=== PATIENT | female | born 1965 | race American Indian/Alaskan Native ===

== ENCOUNTER 2022-01-22 09:34 | Inpatient (IN) | payer SELFPAY ==
--- NOTE | 2022-01-22 09:59 | Emergency Department Report ---
ED CPR HPI - General Stated Complaint: CARDIAC ARREST Time Seen by Provider: 01/22/22 09:42 Source: EMS, old records reviewed Limitations: Altered Mental Status - History of Present Illness Initial Comments: Chief complaint: Cardiac arrest HPI: This is a 56-year-old female with history of hypertension who was last seen well at 5 AM. She was found unresponsive by family member. Upon arrival EMS discovered her without a pulse. Asystole initially rhythm. She was treated with 3 doses of epinephrine and 1 dose of sodium bicarbonate. She was also treated with naloxone. Complaint: found unresponsive Place: home Initial Findings in the Field: unresponsive ROSC in the Field: No Associated Injuries: No Treatments Prior to Arrival: BMV, epinephrine mgs # (3 doses of epinephrine), sodium bicarbonate (1 dose of sodium bicarbonate), other (1 dose naloxone) - Related Data Home Medications Medication Instructions Recorded Confirmed Last Taken Famotidine [Pepcid] 20 mg PO BID 01/22/22 01/22/22 Unknown Losartan [Cozaar] 25 mg PO QDAY 01/22/22 01/22/22 Unknown Pravastatin [Pravachol] 40 mg PO QHS 01/22/22 01/22/22 Unknown donepeziL [Aricept] 5 mg PO QDAY 01/22/22 01/22/22 Unknown Allergies Allergy/AdvReac Type Severity Reaction Status Date / Time No Known Allergies Allergy Verified 01/22/22 11:32 ED Review of Systems ROS: Stated complaint: CARDIAC ARREST Other details as noted in HPI Comment: Unobtainable due to pts medical conditions (Unresponsive patient) ED Past Medical Hx - Past Medical History Previous Medical History?: Yes Hx Hypertension: Yes - Surgical History Additional Surgical History: Unable to obtain - Family History Family history: other (Unable to obtain) - Social History Smoking Status: Unknown if ever smoked Substance Use Type: Other (Unable to obtain) - Medications Home Medications: Home Medications Medication Instructions Recorded Confirmed Last Taken Type Famotidine [Pepcid] 20 mg PO BID 01/22/22 01/22/22 Unknown History Losartan [Cozaar] 25 mg PO QDAY 01/22/22 01/22/22 Unknown History Pravastatin [Pravachol] 40 mg PO QHS 01/22/22 01/22/22 Unknown History donepeziL [Aricept] 5 mg PO QDAY 01/22/22 01/22/22 Unknown History ED Physical Exam - General General appearance: other (GCS 3, no movement, lifeless) - Head Head exam: Present: atraumatic, normocephalic - Eye Eye exam: Present: other (Fixed dilated pupils) - ENT ENT exam: Present: other (No oropharyngeal lesions, oral airway in place) - Neck Neck exam: Present: normal inspection - Respiratory Respiratory exam: Present: other (Equal breath sounds with bag mask valve ventilation no spontaneous respirations). Absent: wheezes, rales, rhonchi - Cardiovascular Cardiovascular Exam: Present: other (No auscultated heart sounds, no palpable pulse) - GI/Abdominal GI/Abdominal exam: Present: distended - Extremities Exam Extremities exam: Present: normal inspection - Neurological Exam Neurological exam: Present: other (GCS 3 lifeless) - Psychiatric Psychiatric exam: Present: other (GCS 3 life) - Skin Skin exam: Present: pallor ED Course Vital Signs 01/22/22 01/22/22 01/22/22 09:40 09:46 09:50 Temperature Pulse Rate 145 H 76 Respiratory 15 18 Rate Blood Pressure 107/65 111/45 O2 Sat by Pulse 68 L 72 L 61 L Oximetry 01/22/22 01/22/22 01/22/22 09:56 10:00 10:06 Temperature Pulse Rate 194 H 140 H 116 H Respiratory 26 H 18 22 Rate Blood Pressure 100/76 209/106 121/71 O2 Sat by Pulse 63 L 99 85 Oximetry 01/22/22 01/22/22 01/22/22 10:12 10:15 10:20 Temperature 96.9 F L Pulse Rate 113 H 163 H 162 H Respiratory 18 17 18 Rate Blood Pressure 116/72 O2 Sat by Pulse 87 99 100 Oximetry 01/22/22 01/22/22 01/22/22 10:25 10:30 10:35 Temperature Pulse Rate 178 H 170 H 134 H Respiratory 18 18 18 Rate Blood Pressure 134/75 125/66 121/86 O2 Sat by Pulse 99 96 92 Oximetry 01/22/22 01/22/22 01/22/22 10:40 10:45 10:50 Temperature Pulse Rate 139 H 141 H 142 H Respiratory 17 18 18 Rate Blood Pressure 131/77 126/76 128/79 O2 Sat by Pulse 94 96 Oximetry 01/22/22 01/22/22 01/22/22 10:55 11:00 11:05 Temperature Pulse Rate 142 H 142 H 143 H Respiratory 18 16 18 Rate Blood Pressure 123/77 115/75 127/79 O2 Sat by Pulse 98 96 95 Oximetry 01/22/22 01/22/22 01/22/22 11:10 11:15 11:20 Temperature Pulse Rate 143 H 143 H 144 H Respiratory 18 18 18 Rate Blood Pressure 128/87 127/85 131/87 O2 Sat by Pulse 95 96 Oximetry 01/22/22 01/22/22 01/22/22 11:25 11:30 11:35 Temperature Pulse Rate 144 H 144 H 144 H Respiratory 18 18 18 Rate Blood Pressure 128/90 129/92 137/93 O2 Sat by Pulse 96 96 99 Oximetry 01/22/22 11:40 Temperature Pulse Rate 145 H Respiratory 18 Rate Blood Pressure 136/90 O2 Sat by Pulse Oximetry - Central Line Placement Right IJ Consent Obtained: emergent situation Time Out Performed: Yes Patient Placed on Monitor/Pulse Ox: Yes MD Prep: mask, gown, gloves, other (Drape cap) Central Line Prep: sterile drapes applied Ultrasound Used for Placement: Yes Central Line Lumen Inserted: triple Reason for Insertion: CV Pressure Monitoring Central Line Position: good blood return Dressing Applied: Tegaderm Post Procedure X-Ray: tip of catheter in good p Patient Tolerated Procedure: well - Intubation Time Out Performed: Yes Laryngoscope: Hansa Size: 4 Assist Device Used: other (video laryngoscope) ET Tube Size: 8 Tube Secured Depth (cm): 20 Tube Secured Location: teeth Tube Placement Confirmation: visualized tube passing t Patient Tolerated Procedure: well Intubation Complications: none ED Medical Decision Making - Lab Data Result diagrams: 01/22/22 09:53 01/22/22 09:53 - Radiology Data Radiology results: report reviewed Patient Name: BLAYNE COY Gender: Female Date of : 1965 Home Phone: Referring Provider: MARIA G FARRELL Organization: [facility] Accession Number: [id number] Requested Date: January 22, 2022 09:43 Report Status: Final Requested Procedure: 1 Procedure Description: XR chest 1V ap Modality: XR Findings Reporting MD: Cal Aguilar Dictation Time: January 22, 2022 09:03 Sawdust Machine Operator: Not available Rock Mason Apprentice Date: CHEST 1 VIEW 01/22/2022 9:02 AM INDICATION / CLINICAL INFORMATION: ETT respiratory failure. COMPARISON: None available. FINDINGS: SUPPORT DEVICES: ET tube tip is about 2.4 cm above the juna. HEART / MEDIASTINUM: Mild cardiomegaly. LUNGS / PLEURA: Mild patchy bilateral opacities. No pneumothorax. ADDITIONAL FINDINGS: No significant additional findings. IMPRESSION: 1. ET tube tip about 2.4 cm above the juan. 2. Mild cardiomegaly with patchy bilateral opacities. Signer Name: Cal Aguilar MD Signed: 01/22/2022 9:03 AM Workstation Name: [id number] Patient Name: BLAYNE COY Gender: Female Date of : 1965 Home Phone: Referring Provider: MARIA G FARRELL Organization: [facility] Accession Number: [id number] Requested Date: January 22, 2022 10:51 Report Status: Final Requested Procedure: 1 Procedure Description: XR chest 1V ap Modality: XR Findings Reporting MD: Willy Frank Dictation Time: January 22, 2022 10:13 Sawdust Machine Operator: Not available Rock Mason Apprentice Date: XR chest 1V ap INDICATION / CLINICAL INFORMATION: CVL right IJ insertion. COMPARISON: Radiograph from earlier same day. FINDINGS: SUPPORT DEVICES: Right IJ central venous catheter projects over the lower SVC. Endotracheal tube is stable. HEART /PULMONARY VASCULATURE: Unchanged. LUNGS / PLEURA: There is improved lung aeration. Left upper lung opacity is improved. Streaky opacities remain throughout both lungs, left greater than right. No sizable pleural effusion. No pneumothorax. IMPRESSION: 1. Right IJ central venous catheter terminates over the lower SVC. 2. Improved lung aeration. Signer Name: Willy Frank MD Signed: 01/22/2022 10:13 AM Workstation Name: [id number] - Medical Decision Making Is a 56-year-old female with history of hypertension who presents in cardiac arrest. After continue resuscitation in the emergency department which included chest compressions epinephrine calcium sodium bicarbonate, ROSC achieved. Shock was also given. Patient was intubated without medication. During ED course, cardiac arrest again ensued. Patient received additional doses of epinephrine calcium and sodium bicarbonate. Patient now requires vasopressor therapy for hypotension. Dopamine infusion used to bridge while CVL was being inserted. Patient has right IJ CVL. Levophed will be ordered. Patient is admitted to CCU in critical condition. Patient currently GCS 3. Admitted to the hospital service. I have consulted network consultant. Work-up reveals acute kidney injury, elevated BNP, hypercalcemia, elevated D- dimer. Critical Care Time: Yes Critical care time in (mins) excluding proc time.: 80 Critical care attestation.: If time is entered above; I have spent that time in minutes in the direct care of this critically ill patient, excluding procedure time. 80 minutes of critical care time excluding procedures were used in the care of the patient. I came immediately to the bedside upon patient's arrival. I obtained history from EMS at the bedside. I discussed treatment plan with the nursing team members. I reviewed electronic record. Patient required multiple interventions and reassessments. ED Disposition Clinical Impression: Acute encephalopathy, [place] (acute kidney injury), Cardiogenic shock, Cardiac arrest Disposition: ADMITTED INPATIENT Is pt being admited?: Yes Does the pt Need Aspirin: No Condition: Critical
--- NOTE | 2022-01-22 10:08 | XRay Report ---
CHEST 1 VIEW 01/22/2022 9:02 AM INDICATION / CLINICAL INFORMATION: ETT respiratory failure. COMPARISON: None available. FINDINGS: SUPPORT DEVICES: ET tube tip is about 2.4 cm above the juan. HEART / MEDIASTINUM: Mild cardiomegaly. LUNGS / PLEURA: Mild patchy bilateral opacities. No pneumothorax. ADDITIONAL FINDINGS: No significant additional findings. IMPRESSION: 1. ET tube tip about 2.4 cm above the juan. 2. Mild cardiomegaly with patchy bilateral opacities. Signer Name: Cal Aguilar MD Signed: 01/22/2022 10:03 AM Workstation Name: [id number]
[2022-01-22 10:12] LABS: Basophils % (Auto) 0.6 % (0.0-1.8); Eosinophils # (Auto) 0.1 K/mm3 (0.0-0.4); Eosinophils % (Auto) 1.5 % (0.0-4.3); Hematocrit 35.2 % (30.3-42.9); Lymphocytes # (Auto) 3.9 K/mm3 (1.2-5.4); Lymphocytes % (Auto) 50.5 % (13.4-35.0); Mean Corpuscular HGB Conc 31 % (30-34); Mean Corpuscular Volume 101 fl (79-97); Monocytes # (Auto) 0.4 K/mm3 (0.0-0.8); Monocytes % (Auto) 4.6 % (0.0-7.3)
[2022-01-22 10:15] LABS: Platelet Count 80 K/mm3 (140-440)
[2022-01-22 10:23] LABS: Alanine Aminotransferase 26 units/L (7-56); BUN/Creatinine Ratio 13; Blood Urea Nitrogen 45 mg/dL (7-17); Hemolysis Index 13
[2022-01-22 10:26] LABS: Calcium > 13.0 mg/dL (8.4-10.2)
[2022-01-22 10:34] LABS: Chol/HDL Ratio 3.49 %; HDL Cholesterol 57 mg/dL (40-59); LDL Cholesterol,Direct 127 mg/dL (50-130)
[2022-01-22 10:38] LABS: INR TNR (0.87-1.13); Partial Thromboplastin Time TNR Sec. (24.2-36.6)
[2022-01-22 11:17] LABS: INR 1.03 (0.87-1.13); Partial Thromboplastin Time 24.7 Sec. (24.2-36.6)
--- NOTE | 2022-01-22 11:17 | XRay Report ---
XR chest 1V ap INDICATION / CLINICAL INFORMATION: CVL right IJ insertion. COMPARISON: Radiograph from earlier same day. FINDINGS: SUPPORT DEVICES: Right IJ central venous catheter projects over the lower SVC. Endotracheal tube is s table. HEART /PULMONARY VASCULATURE: Unchanged. LUNGS / PLEURA: There is improved lung aeration. Left upper lung opacity is improved. Streaky opaciti es remain throughout both lungs, left greater than right. No sizable pleural effusion. No pneumothora x. IMPRESSION: 1. Right IJ central venous catheter terminates over the lower SVC. 2. Improved lung aeration. Signer Name: Willy Frank MD Signed: 01/22/2022 11:13 AM Workstation Name: [id number]
[2022-01-22 11:44] LABS: ABG Base Excess 0.9 mmol/L (-2.0-3.0); ABG Methemoglobin 0.5 % (0.0-1.5); ABG Oxygen Saturation 99.5 % (95.0-99.0); ABG PCO2 38.1 mm Hg; ABG PH 7.435 pH Units (7.350-7.450)
[2022-01-22] MEDS ORDERED: DOPamine 800 MG/D5W 250ML 800 MG/250 ML BAG IV ONE (11:45)
[2022-01-22 11:46] LABS: ABG PO2 274.8 mm Hg (80.0-90.0)
[2022-01-22] MEDS ORDERED: LIP THERAPY VASELINE TP PRN (12:00)
[2022-01-22] MEDS ORDERED: NORepinephrine/NS 8 MG-250 ML 8 MG/250 ML INFUS..BTL IV SCH (12:00)
[2022-01-22] MEDS: SENNOSIDES/DOCUSATE SODIUM 8.6/50 MG TAB FEEDTUBE SCH ×2 (12:05→21:13)
[2022-01-22] MEDS: FAMOTIDINE 20 MG/2 ML INJ IV SCH ×2 (12:05→21:13)
--- NOTE | 2022-01-22 12:23 | History and Physical Report ---
History of Present Illness Date of examination: 01/22/22 Date of admission: January 22, 2022 Chief complaint: S/p cardiac arrest around 5:30 AM History of present illness: 56-year-old female with history of hypertension, GERD and hyperlipidemia was last well-known at 5 AM. She was found unresponsive by family member. EMS was called. CPR was not done initially. CPR was resumed and ACLS protocol was followed. Patient was given 3 doses of epinephrine and 1 dose of bicarb and naloxone. Return of spontaneous circulation was achieved. Patient was intubated for protection of airway. In the emergency room patient was hypotensive. Patient was initiated on Levophed. No fever or chills or any signs or symptoms of infection before. Patient was in normal health. Was doing well. ED course--patient intubated and started on pressors. Patient being admitted to ICU. Labs revealed hypercalcemia and acute kidney injury and elevated troponin. - Past Medical History Previous Medical History?: Yes --Hypertension: Yes - Surgical History Additional Surgical History: Unable to obtain - Family History Family history: other (Unable to obtain) - Social History Smoking Status: Unknown if ever smoked Substance Use Type: Other (Unable to obtain) - Medications Home Medications: Home Medications Medication Instructions Recorded Confirmed Last Taken Type Famotidine [Pepcid] 20 mg PO BID 01/22/22 01/22/22 Unknown History Losartan [Cozaar] 25 mg PO QDAY 01/22/22 01/22/22 Unknown History Pravastatin [Pravachol] 40 mg PO QHS 01/22/22 01/22/22 Unknown History donepeziL [Aricept] 5 mg PO QDAY 01/22/22 01/22/22 Unknown History Review of Systems ROS: Stated complaint: CARDIAC ARREST Other details as noted in HPI Comment: Unobtainable due to pts medical conditions (Unresponsive patient) Medications and Allergies Allergies Allergy/AdvReac Type Severity Reaction Status Date / Time No Known Allergies Allergy Verified 01/22/22 11:32 Home Medications Medication Instructions Recorded Confirmed Last Taken Type Famotidine [Pepcid] 20 mg PO BID 01/22/22 01/22/22 Unknown History Losartan [Cozaar] 25 mg PO QDAY 01/22/22 01/22/22 Unknown History Pravastatin [Pravachol] 40 mg PO QHS 01/22/22 01/22/22 Unknown History donepeziL [Aricept] 5 mg PO QDAY 01/22/22 01/22/22 Unknown History Active Meds: Active Medications Famotidine (Famotidine 20 Mg/2 Ml Inj) 10 mg IV BID ALEX Last Admin: 01/22/22 12:05 Dose: 10 mg Hydrophilic Ointment (Lip Therapy Vaseline) 1 applic TP Q2HR PRN PRN Reason: Dry Lips Last Admin: 01/22/22 12:05 Dose: 1 applic Dopamine HCl/Dextrose (Dopamine 800 Mg/D5w 250ml) 800 mg in 250 mls @ 3.21 mls/hr IV TITR ONE; Protocol Stop: 01/25/22 17:37 Last Titration: 01/22/22 12:15 Dose: 12 mcg/kg/min, 19.26 mls/hr NORepinephrine/NS 8 MG-250 ML (Norepinephrine/Ns 8 Mg-250 Ml (Double Conc)) 8 mg in 250 mls @ 3.75 mls/hr IV TITRATE ALEX; Protocol Multi-Ingred Cream/Lotion/Oil/Oint (Mineral Oil/Petrolatum, White Ophth Oint 3.5 Gm) 1 applic OU Q4HR PRN PRN Reason: Dry Eye(s) Senna/Docusate Sodium (Sennosides/Docusate Sodium 8.6/50 Mg Tab) 1 tab FEEDTUBE BID ALEX Last Admin: 01/22/22 12:05 Dose: 1 tab Exam - Constitutional Vitals: Temp Pulse Resp BP Pulse Ox 96.9 F L 145 H 18 136/90 99 01/22/22 10:20 01/22/22 11:40 01/22/22 11:40 01/22/22 11:40 01/22/22 11:35 General appearance: Present: severe distress, well-nourished - EENT Eyes: Present: PERRL ENT: hearing intact, clear oral mucosa - Neck Neck: Present: supple, normal ROM - Respiratory Respiratory effort: normal Respiratory: bilateral: CTA - Cardiovascular Heart rate: 98 Rhythm: regular Heart Sounds: Present: S1 & S2. Absent: rub, click - Extremities Extremities: pulses symmetrical, No edema Peripheral Pulses: within normal limits - Abdominal General gastrointestinal: Present: soft, non-tender, non-distended, normal bowel sounds Female genitourinary: Present: normal - Integumentary Integumentary: Present: clear, warm, dry - Musculoskeletal Musculoskeletal: strength equal bilaterally, generalized weakness - Psychiatric Psychiatric: other (Unresponsive) - Neurologic Neurologic: CNII-XII intact, moves all extremities - Allied Health Allied health notes reviewed: nursing, case management HEART Score - HEART Score History: Moderately suspicious Age: 45-65 Risk factors: 1-2 risk factors Troponin: Troponin T 0.038 ng/mL (0.00-0.029) H 01/22/22 09:53 Troponin: 1-3x normal limit - Critical Actions Critical Actions: 4-6 pts:12-16.6% risk of adverse cardiac event. Should be admitted Results - Labs CBC & Chem 7: 01/23/22 03:57 01/23/22 03:57 Labs: Laboratory Last Values WBC 7.7 K/mm3 (4.5-11.0) 01/22/22 09:53 RBC 3.50 M/mm3 (3.65-5.03) L 01/22/22 09:53 Hgb 11.0 gm/dl (10.1-14.3) 01/22/22 09:53 Hct 35.2 % (30.3-42.9) 01/22/22 09:53 MCV 101 fl (79-97) H 01/22/22 09:53 MCH 31 pg (28-32) 01/22/22 09:53 MCHC 31 % (30-34) 01/22/22 09:53 RDW 14.0 % (13.2-15.2) 01/22/22 09:53 Plt Count 80 K/mm3 (140-440) L 01/22/22 09:53 Lymph % (Auto) 50.5 % (13.4-35.0) H 01/22/22 09:53 [place] % (Auto) 4.6 % (0.0-7.3) 01/22/22 09:53 Eos % (Auto) 1.5 % (0.0-4.3) 01/22/22 09:53 Baso % (Auto) 0.6 % (0.0-1.8) 01/22/22 09:53 Lymph # (Auto) 3.9 K/mm3 (1.2-5.4) 01/22/22 09:53 [place] # (Auto) 0.4 K/mm3 (0.0-0.8) 01/22/22 09:53 Eos # (Auto) 0.1 K/mm3 (0.0-0.4) 01/22/22 09:53 Baso # (Auto) 0.0 K/mm3 (0.0-0.1) 01/22/22 09:53 Seg Neutrophils % 42.8 % (40.0-70.0) 01/22/22 09:53 Seg Neutrophils # 3.3 K/mm3 (1.8-7.7) 01/22/22 09:53 PT 14.6 Sec. (12.2-14.9) 01/22/22 10:47 INR 1.03 (0.87-1.13) 01/22/22 10:47 APTT 24.7 Sec. (24.2-36.6) 01/22/22 10:47 D-Dimer 5382.96 ng/mlDDU (0-234) H 01/22/22 10:47 ABG pH 7.435 pH Units (7.350-7.450) 01/22/22 11:10 ABG pCO2 38.1 mm Hg 01/22/22 11:10 ABG pO2 274.8 mm Hg (80.0-90.0) H 01/22/22 11:10 ABG HCO3 25.0 mmol/L (20.0-26.0) 01/22/22 11:10 ABG O2 Saturation 99.5 % (95.0-99.0) H 01/22/22 11:10 ABG O2 Content 18.8 (0.0-44) 01/22/22 11:10 ABG Base Excess 0.9 mmol/L (-2.0-3.0) 01/22/22 11:10 ABG Hemoglobin 13.1 gm/dl (12.0-16.0) 01/22/22 11:10 ABG Carboxyhemoglobin 0.7 % (0.0-5.0) 01/22/22 11:10 ABG Methemoglobin 0.5 % (0.0-1.5) 01/22/22 11:10 Oxyhemoglobin 98.3 % (95.0-99.0) 01/22/22 11:10 FiO2 100 % 01/22/22 11:10 Sodium 149 mmol/L (137-145) H 01/22/22 09:53 Potassium 3.6 mmol/L (3.6-5.0) 01/22/22 09:53 Chloride 107.3 mmol/L (98-107) H 01/22/22 09:53 Carbon Dioxide 23 mmol/L (22-30) 01/22/22 09:53 Anion Gap 22 mmol/L 01/22/22 09:53 BUN 45 mg/dL (7-17) H 01/22/22 09:53 Creatinine 3.5 mg/dL (0.6-1.2) H 01/22/22 09:53 Estimated GFR 14 ml/min 01/22/22 09:53 BUN/Creatinine Ratio 13 % 01/22/22 09:53 Glucose 271 mg/dL (65-100) H 01/22/22 09:53 Calcium > 13.0 mg/dL (8.4-10.2) H* 01/22/22 09:53 Total Bilirubin < 0.20 mg/dL (0.1-1.2) 01/22/22 09:53 AST 44 units/L (5-40) H 01/22/22 09:53 ALT 26 units/L (7-56) 01/22/22 09:53 Alkaline Phosphatase 66 units/L (35-129) 01/22/22 09:53 Troponin T 0.038 ng/mL (0.00-0.029) H 01/22/22 09:53 NT-Pro-B Natriuret Pep 996.2 pg/mL (0-900) H 01/22/22 09:53 Total Protein 5.8 g/dL (6.3-8.2) L 01/22/22 09:53 Albumin 3.0 g/dL (3.9-5) L 01/22/22 09:53 Albumin/Globulin Ratio 1.1 % 01/22/22 09:53 Triglycerides 69 mg/dL (2-149) 01/22/22 09:53 Cholesterol 199 mg/dL (50-199) 01/22/22 09:53 LDL Cholesterol Direct 127 mg/dL (50-130) 01/22/22 09:53 HDL Cholesterol 57 mg/dL (40-59) 01/22/22 09:53 Cholesterol/HDL Ratio 3.49 % 01/22/22 09:53 Lipase 74 units/L (13-60) H 01/22/22 09:53 Short CBC 01/22/22 01/23/22 Range/Units 09:53 03:57 WBC 7.7 8.0 (4.5-11.0) K/mm3 Hgb 11.0 11.0 (10.1-14.3) gm/dl Hct 35.2 33.2 (30.3-42.9) % Plt Count 80 L 175 D (140-440) K/mm3 BMP 01/22/22 01/23/22 09:53 03:57 Sodium 149 H 147 H Potassium 3.6 3.9 Chloride 107.3 H 111.2 H Carbon Dioxide 23 23 BUN 45 H 56 H Creatinine 3.5 H 4.7 H Glucose 271 H 94 Calcium > 13.0 H* 9.5 D Cardiac Enzymes 01/22/22 Range/Units 09:53 Troponin T 0.038 H (0.00-0.029) ng/mL Liver Function 01/22/22 01/23/22 Range/Units 09:53 03:57 Total Bilirubin < 0.20 0.30 (0.1-1.2) mg/dL AST 44 H 86 H (5-40) units/L ALT 26 35 (7-56) units/L Alkaline Phosphatase 66 56 (35-129) units/L Albumin 3.0 L 2.7 L (3.9-5) g/dL Urine 01/22/22 Range/Units 17:30 Urine Color Colorless (Yellow) Urine pH 8.0 H (5.0-7.0) Ur Specific [place] 1.005 (1.003-1.030) Urine Protein 100 mg/dl (Negative) mg/dL Urine Glucose (UA) Trace (Negative) mg/dL - Imaging and Cardiology EKG: report reviewed (Sinus tachycardia no acute ST-T wave changes) Chest x-ray: report reviewed Imaging and Cardiology: Chest x-ray Mild cardiomegaly bilateral patchy opacities Assessment and Plan Assessment and plan: Critical care statement The high probability OF a clinically significant sudden or life-threatening deterioration of the cardiorespiratory system and endocrine system required my full and direct attention, intervention and postoperative management. The aggregate critical care time was 40 minutes. The time is in addition to time spent performing reported procedures but includes the followin: Data review and interpretation 2: Patient assessment and monitoring of vital signs 3: Documentation 4:: Medication orders and management Advance Directives: Yes (Full code) VTE prophylaxis?: Chemical Plan of care discussed with patient/family: Yes - Patient Problems (1) Sudden cardiac arrest Current Visit: Yes Status: Acute Plan to address problem: Patient was on cardiac arrest around 5:30 AM Was resuscitated by EMS and return of spontaneous circulation was achieved 3 doses of epinephrine and once dose of bicarb was given Patient was reintubated in the emergency room and also central line was placed Patient on Levophed and pressors IV fluids. Elevated D-dimer and elevated troponin CT angiogram could not be done because of logistics (2) [place] (acute kidney injury) Current Visit: Yes Status: Acute Plan to address problem: Possible ATN secondary to hypotension IV fluids for now Nephrology consult requested (3) NSTEMI (non-ST elevated myocardial infarction) Current Visit: Yes Status: Acute Plan to address problem: Possible NSTEMI Patient initiated on Lovenox Cardiology consult requested Patient is on pressors now Poor prognosis (4) Elevated d-dimer Current Visit: Yes Status: Acute Plan to address problem: CT angiogram could not be done PE cannot be ruled out Patient on high dose Lovenox 85 mg every 12 (5) Sepsis Current Visit: Yes Status: Acute Qualifiers: Sepsis type: sepsis due to unspecified organism Plan to address problem: Unlikely but patient started on cefepime and vancomycin empirically May be discontinued in 24 to 48 hours (6) Hypercalcemia Current Visit: Yes Status: Acute Plan to address problem: IV fluids for now and recheck calcium level (7) Hypertension Current Visit: Yes Status: Chronic Qualifiers: Hypertension type: primary hypertension Qualified Code(s): I10 - Essential (primary) hypertension Plan to address problem: Hold antihypertensives for now (8) DVT prophylaxis Current Visit: Yes Status: Acute Plan to address problem: Patient on anticoagulation and GI prophylaxis (9) Advance care planning Current Visit: Yes Status: Acute Plan to address problem: Patient is full code, discussed with family at length. Advance education conducted, care plan discussed, diagnosis discussed, prognosis discussed. Patient is full code. Patient's family acknowledges understanding and agreement with care plan. +30 minutes.
[2022-01-22] MEDS: HEPARIN 5,000 UNIT/1 ML VIAL SUB-Q SCH ×2 (12:47→21:15)
[2022-01-22] MEDS: SODIUM CHLORIDE 0.9% 1000 ML 1,000 ML IV SCH (12:47)
[2022-01-22] MEDS ORDERED: ACETAMINOPHEN 325 MG TAB PO PRN (13:00)
[2022-01-22] MEDS ORDERED: VANCOMYCIN PHARMACY TO DOSE IV SCH (13:00)
[2022-01-22] MEDS ORDERED: METOCLOPRAMIDE 10 MG/2 ML INJ IV PRN (13:00)
[2022-01-22] MEDS ORDERED: ONDANSETRON 4 MG/2 ML INJ IV PRN (13:00)
[2022-01-22] MEDS ORDERED: MORPHINE 2 MG/1 ML INJ IV PRN (13:00)
[2022-01-22] MEDS ORDERED: MINERAL OIL/PETROLATUM, WHITE OPHTH OINT 3.5 GM OU PRN (14:00)
[2022-01-22] MEDS ORDERED: VANCOMYCIN 1,500 MG in SODIUM CHLORIDE 0.9% 500 ML 500 ML IV SCH (14:15)
[2022-01-22] MEDS ORDERED: CEFEPIME/NS 2 GM/100 ML 2 GM/100 ML BAG IV SCH (15:29)
[2022-01-22] MEDS: CEFEPIME/NS 1 GM/100 ML 1 GM/100 ML BAG IV SCH (16:00)
[2022-01-22 17:59] LABS: Bacteria,Urine 1+ /HPF (Negative)
[2022-01-22 18:03] LABS: Amphetamine Screen,Urine Negative; Benzodiazepines Screen,Urine Negative; Cannabinoid Screen,Urine Negative; Cocaine Screen,Urine Negative; Methadone Screen,Urine Negative; Opiate Screen,Urine Negative
[2022-01-22 18:19] LABS: Bilirubin,Urine Negative (Negative); Blood,Urine Trace (Negative); Color,Urine Colorless (Yellow)
[2022-01-22 18:20] LABS: Urobilinogen,Urine < 2.0 mg/dL (<2.0)
[2022-01-23] MEDS ORDERED: hydrALAZINE 20 MG/1 ML INJ IV PRN (02:00)
--- NOTE | 2022-01-23 04:14 | XRay Report ---
CHEST 1 VIEW INDICATION / CLINICAL INFORMATION: follow up respiratory failure. COMPARISON: Chest x-ray 01/22/2022 FINDINGS: SUPPORT DEVICES: Stable, satisfactory device positioning. Defibrillator pad overlies the right chest. HEART / MEDIASTINUM: No significant interval change. LUNGS / PLEURA: No significant interval change. No pneumothorax. ADDITIONAL FINDINGS: No significant additional findings. IMPRESSION: 1. No active cardiopulmonary disease. Satisfactory positioning of tubes and lines. Signer Name: Elie Salas II, MD Signed: 01/23/2022 4:10 AM Workstation Name: [id number]
[2022-01-23] MEDS: CEFEPIME/NS 1 GM/100 ML 1 GM/100 ML BAG IV SCH (04:16)
[2022-01-23] MEDS: SODIUM CHLORIDE 0.9% 1000 ML 1,000 ML IV SCH ×3 (04:18→22:00)
[2022-01-23 04:19] LABS: ABG Base Excess 1.7 mmol/L (-2.0-3.0); ABG HCO3 22.9 mmol/L (20.0-26.0); ABG Methemoglobin 0.4 % (0.0-1.5); ABG Oxygen Saturation 98.7 % (95.0-99.0); ABG PCO2 25.2 mm Hg; ABG PH 7.575 pH Units (7.350-7.450); ABG PO2 124.7 mm Hg (80.0-90.0)
[2022-01-23 04:24] LABS: Basophils % (Auto) 0.2 % (0.0-1.8); Eosinophils % (Auto) 0.5 % (0.0-4.3); Hematocrit 33.2 % (30.3-42.9); Lymphocytes # (Auto) 0.9 K/mm3 (1.2-5.4); Lymphocytes % (Auto) 11.4 % (13.4-35.0); Mean Corpuscular HGB Conc 33 % (30-34); Mean Corpuscular Volume 96 fl (79-97); Monocytes # (Auto) 0.4 K/mm3 (0.0-0.8); Platelet Count 175 K/mm3 (140-440); Red Blood Count 3.46 M/mm3 (3.65-5.03); Red Cell Distribution Width 13.6 % (13.2-15.2)
[2022-01-23 04:45] LABS: Albumin 2.7 g/dL (3.9-5); Calcium 9.5 mg/dL (8.4-10.2)
[2022-01-23] MEDS ORDERED: SODIUM CHLORIDE 0.9% 250ML 250 ML IV SCH (06:00)
--- NOTE | 2022-01-23 09:21 | Electrocardiograph Report ---
[facility] Test Date: 2022-01-22 Test Time: 10:38:21 Pat Name: BLAYNE COY Department: Room: A260 1 Gender: F Logging Contractor: RACH : 1965 Requested By: DANIA VENTURA Order Number: [id number] Reading MD: Jeanmarie Bolaños Measurements Intervals [place] Rate: 139 P: 55 WY: 168 QRS: -54 QRSD: 137 T: 86 QT: 322 QTc: 490 Interpretive Statements Sinus tachycardia RBBB and LAFB Repol abnrm suggests ischemia, diffuse leads No previous ECG available for comparison Electronically Signed On 01-23-2022 9:21:02 EST by Jeanmarie Bolaños
[2022-01-23] MEDS: FAMOTIDINE 20 MG/2 ML INJ IV SCH ×2 (09:30→22:19)
[2022-01-23] MEDS: SENNOSIDES/DOCUSATE SODIUM 8.6/50 MG TAB FEEDTUBE SCH ×2 (09:30→22:19)
--- NOTE | 2022-01-23 09:58 | Consultation ---
History of Present Illness Consult date: 01/23/22 Reason for Consult: Post cardiac arrest History of present illness: S/p cardiac arrest around 5:30 AM History of present illness: 56-year-old female with history of hypertension, GERD and hyperlipidemia was last well-known at 5 AM. She was found unresponsive by family member. EMS was called. CPR was not done initially. CPR was resumed and ACLS protocol was followed. Patient was given 3 doses of epinephrine and 1 dose of bicarb and naloxone. Return of spontaneous circulation was achieved. Patient was intub ated for protection of airway. In the emergency room patient was hypotensive. Patient was initiated on Levophed. No fever or chills or any signs or symptoms of infection before. Patient was in normal health. Was doing well. ED course--patient intubated and started on pressors. Patient being admitted to ICU. Labs revealed hypercalcemia and acute kidney injury and elevated troponin. Neurology consulted for evaluation of unresponsiveness post cardiac arrest , down time is unknown - Past Medical History Previous Medical History?: Yes --Hypertension: Yes - Surgical History Additional Surgical History: Unable to obtain - Family History Family history: other (Unable to obtain) - Social History Smoking Status: Unknown if ever smoked Substance Use Type: Other (Unable to obtain) - Medications Home Medications: Home Medications Medication Instructions Recorded Confirmed Last Taken Type Famotidine [Pepcid] 20 mg PO BID 01/22/22 01/22/22 Unknown History Losartan [Cozaar] 25 mg PO QDAY 01/22/22 01/22/22 Unknown History Pravastatin [Pravachol] 40 mg PO QHS 01/22/22 01/22/22 Unknown History donepeziL [Aricept] 5 mg PO QDAY 01/22/22 01/22/22 Unknown History Review of Systems ROS: Stated complaint: CARDIAC ARREST Other details as noted in HPI Comment: Unobtainable due to pts medical conditions (Unresponsive patient) Medications and Allergies Allergies Allergy/AdvReac Type Severity Reaction Status Date / Time No Known Allergies Allergy Verified 01/22/22 11:32 Home Medications Medication Instructions Recorded Confirmed Last Taken Type Famotidine [Pepcid] 20 mg PO BID 01/22/22 01/22/22 Unknown History Losartan [Cozaar] 25 mg PO QDAY 01/22/22 01/22/22 Unknown History Pravastatin [Pravachol] 40 mg PO QHS 01/22/22 01/22/22 Unknown History donepeziL [Aricept] 5 mg PO QDAY 01/22/22 01/22/22 Unknown History Active Meds: Active Medications Famotidine (Famotidine 20 Mg/2 Ml Inj) 10 mg IV BID [facility] Last Admin: 01/22/22 12:05 Dose: 10 mg Hydrophilic Ointment (Lip Therapy Vaseline) 1 applic TP Q2HR PRN PRN Reason: Dry Lips Last Admin: 01/22/22 12:05 Dose: 1 applic Dopamine HCl/Dextrose (Dopamine 800 Mg/D5w 250ml) 800 mg in 250 mls @ 3.21 mls/hr IV TITR ONE; Protocol Stop: 01/25/22 17:37 Last Titration: 01/22/22 12:15 Dose: 12 mcg/kg/min, 19.26 mls/hr NORepinephrine/NS 8 MG-250 ML (Norepinephrine/Ns 8 Mg-250 Ml (Double Conc)) 8 mg in 250 mls @ 3.75 mls/hr IV TITRATE [facility]; Protocol Multi-Ingred Cream/Lotion/Oil/Oint (Mineral Oil/Petrolatum, White Ophth Oint 3.5 Gm) 1 applic OU Q4HR PRN PRN Reason: Dry Eye(s) Senna/Docusate Sodium (Sennosides/Docusate Sodium 8.6/50 Mg Tab) 1 tab FEEDTUBE BID [facility] Last Admin: 01/22/22 12:05 Dose: 1 tab Medications and Allergies Allergies Allergy/AdvReac Type Severity Reaction Status Date / Time No Known Allergies Allergy Verified 01/22/22 11:32 Home Medications Medication Instructions Recorded Confirmed Last Taken Type Famotidine [Pepcid] 20 mg PO BID 01/22/22 01/22/22 Unknown History Losartan [Cozaar] 25 mg PO QDAY 01/22/22 01/22/22 Unknown History Pravastatin [Pravachol] 40 mg PO QHS 01/22/22 01/22/22 Unknown History donepeziL [Aricept] 5 mg PO QDAY 01/22/22 01/22/22 Unknown History Active Meds: Active Medications Acetaminophen (Acetaminophen 325 Mg Tab) 650 mg PO Q4H PRN PRN Reason: Pain MILD(1-3)/Fever >100.5/PITTMAN Enoxaparin Sodium (Enoxaparin 80 Mg/0.8 Ml Inj) 80 mg SUB-Q Q24HR [facility]; Protocol Last Admin: 01/23/22 09:26 Dose: 80 mg Famotidine (Famotidine 20 Mg/2 Ml Inj) 10 mg IV BID [facility] Last Admin: 01/23/22 09:30 Dose: 10 mg Hydralazine HCl (Hydralazine 20 Mg/1 Ml Inj) 10 mg IV Q6HR PRN PRN Reason: systolic greather than 165 Last Admin: 01/23/22 01:47 Dose: 10 mg Hydrophilic Ointment (Lip Therapy Vaseline) 1 applic TP Q2HR PRN PRN Reason: Dry Lips Last Admin: 01/22/22 12:05 Dose: 1 applic Dopamine HCl/Dextrose (Dopamine 800 Mg/D5w 250ml) 800 mg in 250 mls @ 3.21 mls/hr IV TITR ONE; Protocol Stop: 01/25/22 17:37 Last Titration: 01/22/22 13:30 Dose: 4 mcg/kg/min, 6.42 mls/hr NORepinephrine/NS 8 MG-250 ML (Norepinephrine/Ns 8 Mg-250 Ml (Double Conc)) 8 mg in 250 mls @ 3.75 mls/hr IV TITRATE [facility]; Protocol Sodium Chloride (Nacl 0.9% 1000 Ml) 1,000 mls @ 125 mls/hr IV DIRECT [facility] Last Admin: 01/23/22 04:18 Dose: 125 mls/hr Sodium Chloride (Nacl 0.9% 250ml) 250 mls @ 999 mls/hr IV ONCE@0600 [facility] Stop: 01/23/22 10:00 Last Admin: 01/23/22 06:06 Dose: 999 mls/hr Cefepime HCl (Cefepime/Ns 1 Gm/100 Ml) 1 gm in 100 mls @ 200 mls/hr IV Q24H [facility] Metoclopramide HCl (Metoclopramide 10 Mg/2 Ml Inj) 5 mg IV Q6H PRN PRN Reason: Nausea And Vomiting Multi-Ingred Cream/Lotion/Oil/Oint (Mineral Oil/Petrolatum, White Ophth Oint 3.5 Gm) 1 applic OU Q4HR PRN PRN Reason: Dry Eye(s) Ondansetron HCl (Ondansetron 4 Mg/2 Ml Inj) 4 mg IV Q3H PRN PRN Reason: Nausea And Vomiting Senna/Docusate Sodium (Sennosides/Docusate Sodium 8.6/50 Mg Tab) 1 tab FEEDTUBE BID [facility] Last Admin: 01/23/22 09:30 Dose: 1 tab Sodium Chloride (Sodium Chloride 0.9% 10 Ml Flush Syringe) 10 ml IV BID [facility] Last Admin: 01/23/22 09:30 Dose: 10 ml Sodium Chloride (Sodium Chloride 0.9% 10 Ml Flush Syringe) 10 ml IV PRN PRN PRN Reason: LINE FLUSH Physical Examination - Vital Signs Vital Signs: Vital Signs Pulse Ox 68 L 01/22/22 09:40 - Constitutional General appearance: comfortable - EENT EENT: Present: PERRL, mucous membranes moist - Respiratory Respiratory: Present: lungs clear, rhonchi, other (intubated, not sedated) - Cardiovascular Cardiovascular: Present: regular rate, normal S1, normal S2 Extremities: Present: no peripheral edema bilatateraly, no clubbing, cyanosis - Gastrointestinal Gastrointestinal: Present: normoactive bowel sounds - Integumentary Integumentary: Present: normal - Neurologic Cranial nerve examination: other (pupils are 4mm none reactive , no gag , no corneal , no EOM is noted, no spontaneous breathing is noted) Detailed motor examination: other (no movment to stimuli is noted) Results - Laboratory Findings CBC and BMP: 01/23/22 03:57 01/23/22 03:57 Abnormal Lab Findings: Abnormal Labs 01/22/22 01/22/22 01/22/22 09:53 09:53 10:47 RBC 3.50 L MCV 101 H Plt Count 80 L Lymph % (Auto) 50.5 H Lymph # (Auto) Seg Neutrophils % D-Dimer 5382.96 H ABG pH ABG pO2 ABG O2 Saturation ABG Hemoglobin Sodium 149 H Chloride 107.3 H BUN 45 H Creatinine 3.5 H Glucose 271 H Calcium > 13.0 H* AST 44 H Troponin T 0.038 H NT-Pro-B Natriuret Pep 996.2 H Total Protein 5.8 L Albumin 3.0 L Lipase 74 H Urine pH Urine WBC (Auto) 01/22/22 01/22/22 01/23/22 11:10 17:30 03:57 RBC 3.46 L MCV Plt Count Lymph % (Auto) 11.4 L Lymph # (Auto) 0.9 L Seg Neutrophils % 82.9 H D-Dimer ABG pH ABG pO2 274.8 H ABG O2 Saturation 99.5 H ABG Hemoglobin Sodium Chloride BUN Creatinine Glucose Calcium AST Troponin T NT-Pro-B Natriuret Pep Total Protein Albumin Lipase Urine pH 8.0 H Urine WBC (Auto) 11.0 H 01/23/22 01/23/22 01/23/22 03:57 03:57 04:00 RBC MCV Plt Count Lymph % (Auto) Lymph # (Auto) Seg Neutrophils % D-Dimer ABG pH 7.575 H ABG pO2 124.7 H ABG O2 Saturation ABG Hemoglobin 10.2 L Sodium 147 H Chloride 111.2 H BUN 56 H Creatinine 4.7 H Glucose Calcium AST 86 H Troponin T 3.000 H* D NT-Pro-B Natriuret Pep Total Protein 5.7 L Albumin 2.7 L Lipase Urine pH Urine WBC (Auto) Assessment and Plan Assessment and Plan 56-year-old female with history of hypertension, GERD and hyperlipidemia was last well-known at 5 AM. She was found unresponsive by family member. EMS was called. CPR was not done initially. CPR was resumed and ACLS protocol was followed. Patient was given 3 doses of epinephrine and 1 dose of bicarb and naloxone. Return of spontaneous circulation was achieved. Patient was intubated for protection of airway. In the emergency room patient was hypotensive. Patient was initiated on Levophed. No fever or chills or any signs or symptoms of infection before. Patient was in normal health. Was doing well. ED course--patient intubated and started on pressors. Patient being admitted to ICU. Labs revealed hypercalcemia and acute kidney injury and elevated troponin. - Patient Problems # Sudden cardiac arrest - sudden cardiopulmonary arrest -down time is unknown -she is off sedation -CT brain is not done -exam is remarkable for absent brain stem reflexes -she is on pressor agent -recommend CT brain and NM brain flow study -findings d/w her nures and her daughter. - over all prognosis is poor # [place] (acute kidney injury) -Possible ATN secondary to hypotension -IV fluids for now # NSTEMI (non-ST elevated myocardial infarction) -Possible NSTEMI -Patient initiated on Lovenox -Patient is on pressors now -Poor prognosis # Elevated d-dimer -CT angiogram could not be done -PE cannot be ruled out -Patient on high dose Lovenox 85 mg every 12 # Sepsis -Patient started on cefepime and vancomycin empirically May be discontinued in 24 to 48 hours # Hypercalcemia Current Visit: Yes Status: Acute Plan to address problem: IV fluids for now and recheck calcium level # Hypertension -Hold antihypertensives for now # DVT prophylaxis -Patient on anticoagulation and GI prophylaxis #Advance care planning -Patient is full code, discussed with family at length-her daughter in the room -Advance education conducted, care plan discussed, diagnosis discussed, prognosis discussed. Patient is full code. Patient's family acknowledges Critical care statement The high probability OF a clinically significant sudden or life-threatening deterioration of the cardiorespiratory system and endocrine system required my full and direct attention, intervention and postoperative management. The aggregate critical care time was 40 minutes. The time is in addition to time spent performing reported procedures but includes the followin: Data review and interpretation 2: Patient assessment and monitoring of vital signs 3: Documentation 4:: Medication orders and management Advance Directives: Yes (Full code) VTE prophylaxis?: Chemical Plan of care discussed with patient/family: Yes will follow
[2022-01-23] MEDS ORDERED: ENOXAPARIN 80 MG/0.8 ML INJ SUB-Q SCH (10:00)
--- NOTE | 2022-01-23 11:34 | XRay Report ---
RIGHT HAND INDICATION: swollen hand/bruises. COMPARISON: None. IMPRESSION: There is severe diffuse nonspecific soft tissue edema. No soft tissue foreign body or so ft tissue gas is identified. The bony structures and joint spaces are unremarkable. Signer Name: Srikanth Bay Jr, MD Signed: 01/23/2022 11:29 AM Workstation Name: [id number]
--- NOTE | 2022-01-23 12:02 | Consultation ---
History of Present Illness - Reason for Consult Consult date: 01/23/22 acute renal failure - History of Present Illness This is a 56 year old emale who was found unresponsive at home by her family member. When EMS arrived patient did not have a pulse and in Asystole. CPR was performed and along with implementation of ACLS protocol and patient had spontaneous return of circulation. Patient was Hypotensive. Patient is currently in ICU, intubated and unresponsive. Pertinent labs revealed an elevated serum creatinine of 3.5 on admission which shawn to 4.7 on repeat lab. Baseline serum creatinine unknown. We are being consulted for management of this patient's Severe Renal Failure. Past History Past Medical History: hypertension, hyperlipidemia Past Surgical History: No surgical history Social history: no significant social history Family history: no significant family history Medications and Allergies Allergies Allergy/AdvReac Type Severity Reaction Status Date / Time No Known Allergies Allergy Verified 01/22/22 11:32 Home Medications Medication Instructions Recorded Confirmed Last Taken Type Famotidine [Pepcid] 20 mg PO BID 01/22/22 01/22/22 Unknown History Losartan [Cozaar] 25 mg PO QDAY 01/22/22 01/22/22 Unknown History Pravastatin [Pravachol] 40 mg PO QHS 01/22/22 01/22/22 Unknown History donepeziL [Aricept] 5 mg PO QDAY 01/22/22 01/22/22 Unknown History Active Meds: Active Medications Acetaminophen (Acetaminophen 325 Mg Tab) 650 mg PO Q4H PRN PRN Reason: Pain MILD(1-3)/Fever >100.5/PITTMAN Enoxaparin Sodium (Enoxaparin 80 Mg/0.8 Ml Inj) 80 mg SUB-Q Q24HR [facility]; Protocol Last Admin: 01/23/22 09:26 Dose: 80 mg Famotidine (Famotidine 20 Mg/2 Ml Inj) 10 mg IV BID [facility] Last Admin: 01/23/22 09:30 Dose: 10 mg Hydralazine HCl (Hydralazine 20 Mg/1 Ml Inj) 10 mg IV Q6HR PRN PRN Reason: systolic greather than 165 Last Admin: 01/23/22 01:47 Dose: 10 mg Hydrophilic Ointment (Lip Therapy Vaseline) 1 applic TP Q2HR PRN PRN Reason: Dry Lips Last Admin: 01/22/22 12:05 Dose: 1 applic Dopamine HCl/Dextrose (Dopamine 800 Mg/D5w 250ml) 800 mg in 250 mls @ 3.21 mls/hr IV TITR ONE; Protocol Stop: 01/25/22 17:37 Last Titration: 01/22/22 13:30 Dose: 4 mcg/kg/min, 6.42 mls/hr NORepinephrine/NS 8 MG-250 ML (Norepinephrine/Ns 8 Mg-250 Ml (Double Conc)) 8 mg in 250 mls @ 3.75 mls/hr IV TITRATE [facility]; Protocol Sodium Chloride (Nacl 0.9% 1000 Ml) 1,000 mls @ 125 mls/hr IV DIRECT [facility] Last Admin: 01/23/22 04:18 Dose: 125 mls/hr Cefepime HCl (Cefepime/Ns 1 Gm/100 Ml) 1 gm in 100 mls @ 200 mls/hr IV Q24H [facility] Metoclopramide HCl (Metoclopramide 10 Mg/2 Ml Inj) 5 mg IV Q6H PRN PRN Reason: Nausea And Vomiting Multi-Ingred Cream/Lotion/Oil/Oint (Mineral Oil/Petrolatum, White Ophth Oint 3.5 Gm) 1 applic OU Q4HR PRN PRN Reason: Dry Eye(s) Ondansetron HCl (Ondansetron 4 Mg/2 Ml Inj) 4 mg IV Q3H PRN PRN Reason: Nausea And Vomiting Senna/Docusate Sodium (Sennosides/Docusate Sodium 8.6/50 Mg Tab) 1 tab FEEDTUBE BID [facility] Last Admin: 01/23/22 09:30 Dose: 1 tab Sodium Chloride (Sodium Chloride 0.9% 10 Ml Flush Syringe) 10 ml IV BID [facility] Last Admin: 01/23/22 09:30 Dose: 10 ml Sodium Chloride (Sodium Chloride 0.9% 10 Ml Flush Syringe) 10 ml IV PRN PRN PRN Reason: LINE FLUSH Review of Systems ROS unobtainable: due to endotracheal tube, due to mental status Exam - Vital Signs Vital signs: Vital Signs Pulse Ox 68 L 01/22/22 09:40 - General Appearance General appearance: intubated EENT: other (Eyes closed) Respiratory: Decreased Breath Sounds, Other (intubated) Heart: S1S2 Gastrointestinal: Present: normoactive bowel sounds Integumentary: warm and dry Neurologic: other (unresponsive and intubated) Musculoskeletal: Present: other (No edema) Results - Lab Results 01/23/22 03:57 01/23/22 03:57 Most recent lab results ABG pH 7.575 pH Units (7.350-7.450) H 01/23/22 04:00 ABG pCO2 25.2 mm Hg 01/23/22 04:00 ABG pO2 124.7 mm Hg (80.0-90.0) H 01/23/22 04:00 ABG HCO3 22.9 mmol/L (20.0-26.0) 01/23/22 04:00 ABG O2 Saturation 98.7 % (95.0-99.0) 01/23/22 04:00 Calcium 9.5 mg/dL (8.4-10.2) D 01/23/22 03:57 Assessment and Plan Assessment: Severe Renal Failure likely secondary to Ischemic ATN secondary to Cardiac Arrest/Shock S/P Cardiac Arrest Respiratory Failure Hypotension Hypernatremia Plan: Renal labs reviewed. Serum creatinine 4.7 on most recent labs, prior was 3.5. Baseline unknown. Continue on NS@ 125 ml/hr Obtain renal ultrasound Obtain urine lytes, protein and eosinophils Obtain daily weights Monitor I/O's daily Avoid nephrotoxic agents Renally dose medications Neurology to evaluate for brain activity No urgent indication for [employer] at this time Will monitor renal function closely Plan of care reviewed by Dr. Croft
--- NOTE | 2022-01-23 12:30 | Consultation ---
History of Present Illness Consult date: 01/23/22 Reason for consult: other (Out of hospital Cardiac Arrest) History of present illness: 56 y/o female found unresponsive by family. Upon ems arrival, asystole. ROSC achieved. patient is unresponsive on vent. no sedation. Past History Past Medical History: other (unable to obtain) Past Surgical History: Other (unable to obtain) Social history: other (unable to obtain) Family history: other (unable to obtain) Medications and Allergies Allergies Allergy/AdvReac Type Severity Reaction Status Date / Time No Known Allergies Allergy Verified 01/22/22 11:32 Home Medications Medication Instructions Recorded Confirmed Last Taken Type Famotidine [Pepcid] 20 mg PO BID 01/22/22 01/22/22 Unknown History Losartan [Cozaar] 25 mg PO QDAY 01/22/22 01/22/22 Unknown History Pravastatin [Pravachol] 40 mg PO QHS 01/22/22 01/22/22 Unknown History donepeziL [Aricept] 5 mg PO QDAY 01/22/22 01/22/22 Unknown History Active Meds: Active Medications Acetaminophen (Acetaminophen 325 Mg Tab) 650 mg PO Q4H PRN PRN Reason: Pain MILD(1-3)/Fever >100.5/[place] Enoxaparin Sodium (Enoxaparin 80 Mg/0.8 Ml Inj) 80 mg SUB-Q Q24HR [facility]; Protocol Last Admin: 01/23/22 09:26 Dose: 80 mg Famotidine (Famotidine 20 Mg/2 Ml Inj) 10 mg IV BID [facility] Last Admin: 01/23/22 09:30 Dose: 10 mg Hydralazine HCl (Hydralazine 20 Mg/1 Ml Inj) 10 mg IV Q6HR PRN PRN Reason: systolic greather than 165 Last Admin: 01/23/22 01:47 Dose: 10 mg Hydrophilic Ointment (Lip Therapy Vaseline) 1 applic TP Q2HR PRN PRN Reason: Dry Lips Last Admin: 01/22/22 12:05 Dose: 1 applic Dopamine HCl/Dextrose (Dopamine 800 Mg/D5w 250ml) 800 mg in 250 mls @ 3.21 mls/hr IV TITR ONE; Protocol Stop: 01/25/22 17:37 Last Titration: 01/22/22 13:30 Dose: 4 mcg/kg/min, 6.42 mls/hr NORepinephrine/NS 8 MG-250 ML (Norepinephrine/Ns 8 Mg-250 Ml (Double Conc)) 8 mg in 250 mls @ 3.75 mls/hr IV TITRATE [facility]; Protocol Sodium Chloride (Nacl 0.9% 1000 Ml) 1,000 mls @ 125 mls/hr IV DIRECT [facility] Last Admin: 01/23/22 04:18 Dose: 125 mls/hr Cefepime HCl (Cefepime/Ns 1 Gm/100 Ml) 1 gm in 100 mls @ 200 mls/hr IV Q24H [facility] Metoclopramide HCl (Metoclopramide 10 Mg/2 Ml Inj) 5 mg IV Q6H PRN PRN Reason: Nausea And Vomiting Multi-Ingred Cream/Lotion/Oil/Oint (Mineral Oil/Petrolatum, White Ophth Oint 3.5 Gm) 1 applic OU Q4HR PRN PRN Reason: Dry Eye(s) Ondansetron HCl (Ondansetron 4 Mg/2 Ml Inj) 4 mg IV Q3H PRN PRN Reason: Nausea And Vomiting Senna/Docusate Sodium (Sennosides/Docusate Sodium 8.6/50 Mg Tab) 1 tab FEEDTUBE BID [facility] Last Admin: 01/23/22 09:30 Dose: 1 tab Sodium Chloride (Sodium Chloride 0.9% 10 Ml Flush Syringe) 10 ml IV BID [facility] Last Admin: 01/23/22 09:30 Dose: 10 ml Sodium Chloride (Sodium Chloride 0.9% 10 Ml Flush Syringe) 10 ml IV PRN PRN PRN Reason: LINE FLUSH Review of Systems ROS unobtainable: due to endotracheal tube, due to mental status Physical Examination Vital signs: Vital Signs Pulse Ox 68 L 01/22/22 09:40 Results - Laboratory Findings CBC and BMP: 01/23/22 03:57 01/23/22 03:57 ABG ABG pH 7.575 pH Units (7.350-7.450) H 01/23/22 04:00 ABG pCO2 25.2 mm Hg 01/23/22 04:00 ABG pO2 124.7 mm Hg (80.0-90.0) H 01/23/22 04:00 ABG O2 Saturation 98.7 % (95.0-99.0) 01/23/22 04:00 PT/INR, D-dimer PT 14.6 Sec. (12.2-14.9) 01/22/22 10:47 INR 1.03 (0.87-1.13) 01/22/22 10:47 D-Dimer 5382.96 ng/mlDDU (0-234) H 01/22/22 10:47 Abnormal lab findings: Abnormal Labs 01/22/22 01/22/22 01/22/22 09:53 09:53 10:47 RBC 3.50 L MCV 101 H Plt Count 80 L Lymph % (Auto) 50.5 H Lymph # (Auto) Seg Neutrophils % D-Dimer 5382.96 H ABG pH ABG pO2 ABG O2 Saturation ABG Hemoglobin Sodium 149 H Chloride 107.3 H BUN 45 H Creatinine 3.5 H Glucose 271 H Calcium > 13.0 H* AST 44 H Troponin T 0.038 H NT-Pro-B Natriuret Pep 996.2 H Total Protein 5.8 L Albumin 3.0 L Lipase 74 H Urine pH Urine WBC (Auto) 01/22/22 01/22/22 01/23/22 11:10 17:30 03:57 RBC 3.46 L MCV Plt Count Lymph % (Auto) 11.4 L Lymph # (Auto) 0.9 L Seg Neutrophils % 82.9 H D-Dimer ABG pH ABG pO2 274.8 H ABG O2 Saturation 99.5 H ABG Hemoglobin Sodium Chloride BUN Creatinine Glucose Calcium AST Troponin T NT-Pro-B Natriuret Pep Total Protein Albumin Lipase Urine pH 8.0 H Urine WBC (Auto) 11.0 H 01/23/22 01/23/22 01/23/22 03:57 03:57 04:00 RBC MCV Plt Count Lymph % (Auto) Lymph # (Auto) Seg Neutrophils % D-Dimer ABG pH 7.575 H ABG pO2 124.7 H ABG O2 Saturation ABG Hemoglobin 10.2 L Sodium 147 H Chloride 111.2 H BUN 56 H Creatinine 4.7 H Glucose Calcium AST 86 H Troponin T 3.000 H* D NT-Pro-B Natriuret Pep Total Protein 5.7 L Albumin 2.7 L Lipase Urine pH Urine WBC (Auto) Assessment and Plan 56 y/o female with out of hospital cardiac arrest, asystole. 1. Head CT 2. Wean Vent settings 3. Neurology consult 4. Poor prognosis cCt 31 minutes.
--- NOTE | 2022-01-23 13:16 | Vascular Lab Report ---
DUPLEX DOPPLER LOWER EXTREMITY VEINS, BILATERAL INDICATION / CLINICAL INFORMATION: elevated ddimer. TECHNIQUE: Duplex doppler imaging was performed through the veins of both lower extremities using jannet ous compression and other maneuvers. COMPARISON: None available. FINDINGS: RIGHT COMMON FEMORAL VEIN: Negative. RIGHT FEMORAL VEIN: Negative. RIGHT POPLITEAL VEIN: Negative. RIGHT CALF VEINS: Negative. LEFT COMMON FEMORAL VEIN: Negative. LEFT FEMORAL VEIN: Negative. LEFT POPLITEAL VEIN: Negative. LEFT CALF VEINS: Negative. ADDITIONAL FINDINGS: None. IMPRESSION: 1. No sonographic evidence for DVT in either lower extremity. Signer Name: Bi Craig MD Signed: 01/23/2022 1:11 PM Workstation Name: [id number]
--- NOTE | 2022-01-23 13:19 | Vascular Lab Report ---
ARTERIAL DUPLEX UPPER EXTREMITY RIGHT HISTORY: Swollen and discolored right hand, status post cardiac arrest, hyperlipidemia, sepsis TECHNIQUE: Grayscale ultrasound with color and spectral Doppler imaging. COMPARISON: None. FINDINGS: Imaging was performed from the right subclavian artery to the distal radial and ulnar arter ies. The images demonstrate the right upper extremity arterial structures are patent with biphasic wa veforms throughout. No occlusion or stenosis. IMPRESSION: Patent right upper extremity arterial structures. Signer Name: Srikanth Bay Jr, MD Signed: 01/23/2022 1:14 PM Workstation Name: [id number]
--- NOTE | 2022-01-23 13:37 | Nuclear Medicine Report ---
NM BRAIN FLOW HISTORY: Cardiac arrest COMPARISON: None. TECHNIQUE: Following administration of radiopharmaceutical, followed by a saline flush, immediate dyn amic images of the head and neck were acquired in the anterior projection for one minute. Subsequentl y, static images of the head were obtained. RADIOPHARMACEUTICAL: 21.9 mCi of [id number] FINDINGS: DYNAMIC IMAGING: No activity in the internal carotid arteries with no identification of the anterior and middle cerebral arteries. DELAYED IMAGING: No intracranial activity is identified. Increased activity in the nose is indicativ e of increased collateral flow through the external carotids. Additional Findings: None. IMPRESSION: 1. Intracranial cerebral perfusion is absent. Signer Name: Cal Aguilar MD Signed: 01/23/2022 1:32 PM Workstation Name: [id number]
--- NOTE | 2022-01-23 13:46 | Cat Scan Report ---
CT head/brain wo con INDICATION / CLINICAL INFORMATION: 56 years Female; s/p cardiac arrest. TECHNIQUE: Routine CT head without contrast. All CT scans at this location are performed using CT dos e reduction for ALARA by means of automated exposure control. COMPARISON: None. FINDINGS: BRAIN / INTRACRANIAL CONTENTS: There is extensive intraventricular hemorrhage including within the fo urth ventricle. Additionally, there is also subarachnoid hemorrhage within the basal cisterns and sirisha vian fissures. There also appears be component of hemorrhage along the falx and tentorium. There is notable mass effect with effacement of the cerebral sulci and basal cisterns concerning for diffuse cerebral edema. However, there does appear to be some meredith-white matter differentiation on th e current study and correlation would be needed given history of cardiac arrest. ORBITS: No significant abnormality of visualized orbits. SINUSES / MASTOIDS: There is opacification with small air-fluid levels along the posterior sphenoid s inuses. CRANIOCERVICAL JUNCTION: No significant abnormality. ADDITIONAL FINDINGS: None. IMPRESSION: 1. There is extensive intraventricular and subarachnoid hemorrhage as detailed above. 2. Additionally, there also appears to be diffuse cerebral edema with effacement of the sulci and bas al cisterns as described. The findings represent a positive clinical test result and were discovered at 12:38 PM. However, Mavin attempts to call the number provided at [phone] were unsuccessful. Signer Name: Estrada Fernandes MD Signed: 01/23/2022 1:42 PM Workstation Name: [id number]
--- NOTE | 2022-01-23 13:52 | Consultation ---
History of Present Illness Consult date: 01/23/22 Requesting physician: BELINDA JUDGE Consult reason: cardiac arrest History of present illness: Patient 56-year-old female who was found unresponsive by family member with a last known well time at 5 AM yesterday. History is taken from documentation due to patient being intubated and unresponsive at time of interview. Per documentation EMS was notified and he had EMS arrived patient was found not to have a pulse and asystole. ACLS protocol initiated with ROSC. Patient transferred to [facility]. Per conversation with patient's daughter patient has a past medical history of hypertension but other than that the patient has been in a normal state of health recently. Of note patient was found to have elevated creatinine of 4.7, elevated D-dimer, elevated BNP, elevated troponins. Patient is previously unknown to our practice. Cardiology is consulted for status post cardiac arrest Past History Past Medical History: hypertension, other (unable to obtain) Past Surgical History: Other (unable to obtain) Social history: other (unable to obtain) Family history: other (unable to obtain) Medications and Allergies Allergies Allergy/AdvReac Type Severity Reaction Status Date / Time No Known Allergies Allergy Verified 01/22/22 11:32 Home Medications Medication Instructions Recorded Confirmed Last Taken Type Famotidine [Pepcid] 20 mg PO BID 01/22/22 01/22/22 Unknown History Losartan [Cozaar] 25 mg PO QDAY 01/22/22 01/22/22 Unknown History Pravastatin [Pravachol] 40 mg PO QHS 01/22/22 01/22/22 Unknown History donepeziL [Aricept] 5 mg PO QDAY 01/22/22 01/22/22 Unknown History Active Meds: Active Medications Acetaminophen (Acetaminophen 325 Mg Tab) 650 mg PO Q4H PRN PRN Reason: Pain MILD(1-3)/Fever >100.5/PITTMAN Enoxaparin Sodium (Enoxaparin 80 Mg/0.8 Ml Inj) 80 mg SUB-Q Q24HR ALEX; Protocol Last Admin: 01/23/22 09:26 Dose: 80 mg Famotidine (Famotidine 20 Mg/2 Ml Inj) 10 mg IV BID ALEX Last Admin: 01/23/22 09:30 Dose: 10 mg Hydralazine HCl (Hydralazine 20 Mg/1 Ml Inj) 10 mg IV Q6HR PRN PRN Reason: systolic greather than 165 Last Admin: 01/23/22 01:47 Dose: 10 mg Hydrophilic Ointment (Lip Therapy Vaseline) 1 applic TP Q2HR PRN PRN Reason: Dry Lips Last Admin: 01/22/22 12:05 Dose: 1 applic Dopamine HCl/Dextrose (Dopamine 800 Mg/D5w 250ml) 800 mg in 250 mls @ 3.21 mls/hr IV TITR ONE; Protocol Stop: 01/25/22 17:37 Last Titration: 01/22/22 13:30 Dose: 4 mcg/kg/min, 6.42 mls/hr NORepinephrine/NS 8 MG-250 ML (Norepinephrine/Ns 8 Mg-250 Ml (Double Conc)) 8 mg in 250 mls @ 3.75 mls/hr IV TITRATE ALEX; Protocol Last Admin: 01/23/22 13:43 Dose: 10 mcg/min, 18.75 mls/hr Sodium Chloride (Nacl 0.9% 1000 Ml) 1,000 mls @ 125 mls/hr IV DIRECT ALEX Last Admin: 01/23/22 13:43 Dose: 125 mls/hr Cefepime HCl (Cefepime/Ns 1 Gm/100 Ml) 1 gm in 100 mls @ 200 mls/hr IV Q24H ALEX Metoclopramide HCl (Metoclopramide 10 Mg/2 Ml Inj) 5 mg IV Q6H PRN PRN Reason: Nausea And Vomiting Multi-Ingred Cream/Lotion/Oil/Oint (Mineral Oil/Petrolatum, White Ophth Oint 3.5 Gm) 1 applic OU Q4HR PRN PRN Reason: Dry Eye(s) Ondansetron HCl (Ondansetron 4 Mg/2 Ml Inj) 4 mg IV Q3H PRN PRN Reason: Nausea And Vomiting Senna/Docusate Sodium (Sennosides/Docusate Sodium 8.6/50 Mg Tab) 1 tab FEEDTUBE BID ALEX Last Admin: 01/23/22 09:30 Dose: 1 tab Sodium Chloride (Sodium Chloride 0.9% 10 Ml Flush Syringe) 10 ml IV BID ALEX Last Admin: 01/23/22 09:30 Dose: 10 ml Sodium Chloride (Sodium Chloride 0.9% 10 Ml Flush Syringe) 10 ml IV PRN PRN PRN Reason: LINE FLUSH Review of Systems ROS unobtainable: due to endotracheal tube, due to mental status Physical Examination Vital Signs Pulse Ox 68 L 01/22/22 09:40 General appearance: other (Unresponsive) HEENT: Positive: Normocephaly Neck: Positive: trachea midline Cardiac: Positive: Reg Rate and Rhythm Lungs: Positive: Ventilated Respirations Neuro: Positive: Other (Unresponsive) Abdomen: Positive: Soft Skin: Negative: Rash, Suspicious Lesions, Ulceration Extremities: Present: upper extr. pulses Results 01/23/22 03:57 01/23/22 03:57 Cardiac Enzymes 01/23/22 Range/Units 03:57 AST 86 H (5-40) units/L CBC 01/23/22 Range/Units 03:57 WBC 8.0 (4.5-11.0) K/mm3 RBC 3.46 L (3.65-5.03) M/mm3 Hgb 11.0 (10.1-14.3) gm/dl Hct 33.2 (30.3-42.9) % Plt Count 175 D (140-440) K/mm3 Lymph # (Auto) 0.9 L (1.2-5.4) K/mm3 Hart # (Auto) 0.4 (0.0-0.8) K/mm3 Eos # (Auto) 0.0 (0.0-0.4) K/mm3 Baso # (Auto) 0.0 (0.0-0.1) K/mm3 Comprehensive Metabolic Panel 01/23/22 Range/Units 03:57 Sodium 147 H (137-145) mmol/L Potassium 3.9 (3.6-5.0) mmol/L Chloride 111.2 H (98-107) mmol/L Carbon Dioxide 23 (22-30) mmol/L BUN 56 H (7-17) mg/dL Creatinine 4.7 H (0.6-1.2) mg/dL Glucose 94 (65-100) mg/dL Calcium 9.5 D (8.4-10.2) mg/dL AST 86 H (5-40) units/L ALT 35 (7-56) units/L Alkaline Phosphatase 56 (35-129) units/L Total Protein 5.7 L (6.3-8.2) g/dL Albumin 2.7 L (3.9-5) g/dL - Imaging and Cardiology Echo: pending EKG interpretations - Telemetry EKG Rhythm: Sinus Tachycardia - EKG Sinus rhythms and dysrhythmias: sinus tachycardia AV and intraventricular conduction: right bundle branch block, left anterior fascicular Assessment and Plan Patient 56-year-old female with a PMH of hypertension who was found unresponsive and in cardiopulmonary arrest with an unknown downtime S/p cardiopulmonary arrest Acute respiratory failure-pulmonary following Anoxic brain injury?-Neurology following Acute renal failure-nephrology follow NSTEMI Elevated D-dimer Plan: EKG shows sinus tachycardia 139 with RBBB and LAFB. Repol abnormalities suggest ischemia diffusely Echo pending Troponins noted to be elevated following cardiopulmonary arrest Patient currently anticoagulated on Lovenox No beta-blockers due to patient currently requiring pressors Patient currently unresponsive on vent with no sedation Patient awaiting brain flow study Had extensive conversation with patient's daughter about guarded prognosis and plan of care Patient seen in conjunction with Dr. Bolaños who agrees with this plan of care - Patient Problems (1) Acute respiratory failure Current Visit: Yes Status: Acute (2) Elevated d-dimer Current Visit: Yes Status: Acute (3) Hypercalcemia Current Visit: Yes Status: Acute (4) NSTEMI (non-ST elevated myocardial infarction) Current Visit: Yes Status: Acute (5) Sudden cardiac arrest Current Visit: Yes Status: Acute (6) Hypertension Current Visit: Yes Status: Chronic Qualifiers: Hypertension type: primary hypertension Qualified Code(s): I10 - Essential (primary) hypertension (7) Acute renal failure (ARF) Current Visit: Yes Status: Acute
[2022-01-23] MEDS ORDERED: SODIUM BICARB 8.4% 50 MEQ/50 ML SYRINGE IV ONE (16:06)
[2022-01-23] MEDS ORDERED: EPINEPHrine 1 MG/10 ML SYRINGE ONE (16:06)
[2022-01-23] MEDS ORDERED: DOPamine DRIP 800 MG/D5W 250ML PreMix IV ONE (16:06)
--- NOTE | 2022-01-23 16:08 | Progress Note ---
<RINAISAMARFrida - Last Filed: 01/23/22 16:49> Assessment and Plan Assessment and plan: This is a 56-year-old with HTN admitted s/p cardiac arrest with acute hypoxic respiratory failure. Neuro: Anoxic brain injury, intraventricular and subarachnoid hemorrhage -Patient is not sedated and unresponsive. GCS 3 T. Pupils not reactive. -Neurology consulted, appreciate recommendations -01/23 CT head shows extensive intraventricular and subarachnoid hemorrhage with no notable mass-effect or findings concerning for diffuse cerebral edema. Opacification of the small air-fluid levels around the posterior sphenoid sinuses -Radiology attempted to convey the results of the CT scan several times h owever was calling the wrong number. -01/23 nuclear med brain flow study showed absent cerebral flow -Cold caloric test to be performed in the a.m. by neurology -Delayed due to hypothermia -Active rewarming in process -Right wrist with bruising -Right upper extremity XR without acute fracture -Right upper extremity duplex pending Cardiac: s/p cardiopulmonary arrest, NSTEMI, h/o HTN -Cardiology consulted, appreciate recommendations -Blood pressure monitoring per protocol -Vasopressor support with Levophed -MAP goal greater than 65 -Echocardiogram pending Respiratory: Acute hypoxic respiratory failure -CCM consulted, appreciate recommendations -Intubated via EMS on 01/22 with 8.00 ETT at 21 at the right lip -A.m. vent settings: Assist-control/PRVC rate 14, tidal volume 450, PEEP 6, FiO2 50% -See RT notes for titration -A.m. ABG and CXR noted -VAP bundle -SPO2 monitoring GI: Protein calorie malnutrition -24 hours -1196 mL -PPI -NTR consulted for tube feedings -BR: Senokot : Acute kidney injury likely secondary to vasomotor nephropathy, hypernatremia, hyperchloremia, metabolic acidosis -Nephrology consulted, appreciate recommendations -Strict intake and output -beyer in place -Renally dose medications -Avoid nephrotoxic medications -Daily weights -Renal ultrasound pending ID: [id number] -Antibiotic therapy: Cefepime -f/u blood culture -Monitor WBC and temperature curve Endo: Hyperglycemia -Avoid hypoglycemia -SSI -Accu-Cheks q. q6 -Long-acting insulin, titrate as needed Heme: Elevated D-dimer -Trend CBC -Transfuse hemoglobin less than 7 -Monitor for signs of bleeding -SCDs to BLE while in bed -Bilateral lower extremity Doppler ultrasound negative for DVT The high probability of a clinically significant, sudden or life threatening deterioration of the [multi] system(s) required my full and direct attention, intervention and personal management. The aggregate critical care time was [90] minutes. This time is in addition to time spent performing reported procedures but includes the following: [x] Data Review and interpretation [x] Patient assessment and monitoring of vital signs [x] Documentation [x] Medication orders and management Disposition Plan: icu Total Time Spent with Patient (Minutes): 90 History Interval history: This is a 56-year-old female with HTN who was found unresponsive by her family member on 01/22 and was found in asystole upon EMS arrival and status was initiated and she was given Narcan. Last known well time at 5 AM on 01/22. ACLS continued the emergency department and patient was shocked and ROSC was achieved. Patient was also intubated. Work-up in the emergency department revealed elevated D-dimer, proBNP and troponins as well as acute kidney injury. Patient was hypotensive in the emergency department and was started on dopamine drip as bridge until CVL was inserted and Levophed was started. Patient was admitted to the hospitalist service with consults to [facility] and nephrology. 01/23: Cardiology and neurology consulted. Patient had an nuclear brain flow study in the CT head. Nephrology recommended to continue normal saline. Patient became hypotensive this evening and was started on Levophed. Patient remains self cooling however is being rewarmed now. LifeAlexandre was at bedside to evaluate. She also had an echocardiogram at bedside today. XR obtained of right arm due to swelling/bruising upon family request. Also obtained arterial duplex of right upper extremity. Elevated D-dimer and bilateral lower extremity ultrasound obtained which showed no DVT. Hospitalist Physical - Constitutional Vitals: Temp Pulse Resp BP Pulse Ox 96.3 F L 57 L 18 94/55 96 01/23/22 07:21 01/23/22 12:30 01/23/22 12:00 01/23/22 09:10 01/23/22 12:30 General appearance: Present: no acute distress, other (Unresponsive) - EENT Eyes: Absent: PERRL, EOM intact ENT: clear oral mucosa - Neck Neck: Present: masses or JVD, cervical LAD - Respiratory Respiratory effort: normal Respiratory: bilateral: diminished - Cardiovascular Rhythm: regular Heart Sounds: Present: S1 & S2. Absent: systolic murmur, diastolic murmur - Extremities Extremities: no ischemia, pulses intact, pulses symmetrical, normal temperature Peripheral Pulses: within normal limits - Abdominal General gastrointestinal: soft, non-tender, non-distended, normal bowel sounds - Integumentary Integumentary: Present: warm, dry - Psychiatric Psychiatric: no cooperative - Neurologic Neurologic: no CNII-XII intact, no moves all extremities, other (Pupils nonreactive, no cough/gag, no reaction to painful stimuli. GCS 3 T) - Allied Health Allied health notes reviewed: nursing, RT, social work HEART Score - HEART Score Age: 45-65 Risk factors: 1-2 risk factors Troponin: Troponin T 2.100 ng/mL (0.00-0.029) H* D 01/23/22 14:46 Troponin: 1-3x normal limit - Critical Actions Critical Actions: 4-6 pts:12-16.6% risk of adverse cardiac event. Should be admitted Results - Labs CBC & Chem 7: 01/23/22 03:57 01/23/22 14:46 Labs: Laboratory Last Values WBC 8.0 K/mm3 (4.5-11.0) 01/23/22 03:57 RBC 3.46 M/mm3 (3.65-5.03) L 01/23/22 03:57 Hgb 11.0 gm/dl (10.1-14.3) 01/23/22 03:57 Hct 33.2 % (30.3-42.9) 01/23/22 03:57 MCV 96 fl (79-97) 01/23/22 03:57 MCH 32 pg (28-32) 01/23/22 03:57 MCHC 33 % (30-34) 01/23/22 03:57 RDW 13.6 % (13.2-15.2) 01/23/22 03:57 Plt Count 175 K/mm3 (140-440) D 01/23/22 03:57 Lymph % (Auto) 11.4 % (13.4-35.0) L 01/23/22 03:57 Garfield % (Auto) 5.0 % (0.0-7.3) 01/23/22 03:57 Eos % (Auto) 0.5 % (0.0-4.3) 01/23/22 03:57 Baso % (Auto) 0.2 % (0.0-1.8) 01/23/22 03:57 Lymph # (Auto) 0.9 K/mm3 (1.2-5.4) L 01/23/22 03:57 Garfield # (Auto) 0.4 K/mm3 (0.0-0.8) 01/23/22 03:57 Eos # (Auto) 0.0 K/mm3 (0.0-0.4) 01/23/22 03:57 Baso # (Auto) 0.0 K/mm3 (0.0-0.1) 01/23/22 03:57 Seg Neutrophils % 82.9 % (40.0-70.0) H 01/23/22 03:57 Seg Neutrophils # 6.7 K/mm3 (1.8-7.7) 01/23/22 03:57 PT 14.6 Sec. (12.2-14.9) 01/22/22 10:47 INR 1.03 (0.87-1.13) 01/22/22 10:47 APTT 24.7 Sec. (24.2-36.6) 01/22/22 10:47 D-Dimer 5382.96 ng/mlDDU (0-234) H 01/22/22 10:47 ABG pH 7.575 pH Units (7.350-7.450) H 01/23/22 04:00 ABG pCO2 25.2 mm Hg 01/23/22 04:00 ABG pO2 124.7 mm Hg (80.0-90.0) H 01/23/22 04:00 ABG HCO3 22.9 mmol/L (20.0-26.0) 01/23/22 04:00 ABG O2 Saturation 98.7 % (95.0-99.0) 01/23/22 04:00 ABG O2 Content 14.2 (0.0-44) 01/23/22 04:00 ABG Base Excess 1.7 mmol/L (-2.0-3.0) 01/23/22 04:00 ABG Hemoglobin 10.2 gm/dl (12.0-16.0) L 01/23/22 04:00 ABG Carboxyhemoglobin 0.9 % (0.0-5.0) 01/23/22 04:00 ABG Methemoglobin 0.4 % (0.0-1.5) 01/23/22 04:00 Oxyhemoglobin 97.4 % (95.0-99.0) 01/23/22 04:00 FiO2 50 % 01/23/22 04:00 Sodium 154 mmol/L (137-145) H 01/23/22 14:46 Potassium 3.6 mmol/L (3.6-5.0) 01/23/22 14:46 Chloride 117.9 mmol/L (98-107) H 01/23/22 14:46 Carbon Dioxide 23 mmol/L (22-30) 01/23/22 03:57 Anion Gap 17 mmol/L 01/23/22 03:57 BUN 56 mg/dL (7-17) H 01/23/22 03:57 Creatinine 4.7 mg/dL (0.6-1.2) H 01/23/22 03:57 Estimated GFR 12 ml/min 01/23/22 03:57 BUN/Creatinine Ratio 12 % 01/23/22 03:57 Glucose 181 mg/dL (65-100) H 01/23/22 14:46 POC Glucose 93 mg/dL (70-105) 01/23/22 15:43 Lactic Acid 1.60 mmol/L (0.7-2.0) 01/23/22 14:46 Calcium 9.5 mg/dL (8.4-10.2) D 01/23/22 03:57 Total Bilirubin 0.30 mg/dL (0.1-1.2) 01/23/22 03:57 AST 86 units/L (5-40) H 01/23/22 03:57 ALT 35 units/L (7-56) 01/23/22 03:57 Alkaline Phosphatase 56 units/L (35-129) 01/23/22 03:57 Troponin T 2.100 ng/mL (0.00-0.029) H* D 01/23/22 14:46 NT-Pro-B Natriuret Pep 996.2 pg/mL (0-900) H 01/22/22 09:53 Total Protein 5.7 g/dL (6.3-8.2) L 01/23/22 03:57 Albumin 2.7 g/dL (3.9-5) L 01/23/22 03:57 Albumin/Globulin Ratio 0.9 % 01/23/22 03:57 Triglycerides 69 mg/dL (2-149) 01/22/22 09:53 Cholesterol 199 mg/dL (50-199) 01/22/22 09:53 LDL Cholesterol Direct 127 mg/dL (50-130) 01/22/22 09:53 HDL Cholesterol 57 mg/dL (40-59) 01/22/22 09:53 Cholesterol/HDL Ratio 3.49 % 01/22/22 09:53 Lipase 74 units/L (13-60) H 01/22/22 09:53 Urine Color Colorless (Yellow) 01/22/22 17:30 Urine Turbidity Clear (Clear) 01/22/22 17:30 Urine pH 8.0 (5.0-7.0) H 01/22/22 17:30 Ur Specific [place] 1.005 (1.003-1.030) 01/22/22 17:30 Urine Protein 100 mg/dl mg/dL (Negative) 01/22/22 17:30 Urine Glucose (UA) Trace mg/dL (Negative) 01/22/22 17:30 Urine Ketones Negative mg/dL (Negative) 01/22/22 17:30 Urine Blood Trace (Negative) 01/22/22 17:30 Urine Nitrite Negative (Negative) 01/22/22 17:30 Ur Reducing Substances Not Reportable 01/22/22 17:30 Urine Bilirubin Negative (Negative) 01/22/22 17:30 Urine Ictotest Not Reportable 01/22/22 17:30 Urine Urobilinogen < 2.0 mg/dL (<2.0) 01/22/22 17:30 Ur Leukocyte Esterase Small (Negative) 01/22/22 17:30 Urine WBC (Auto) 11.0 /HPF (0.0-6.0) H 01/22/22 17:30 Urine RBC (Auto) 14.0 /HPF (0.0-6.0) 01/22/22 17:30 U Epithel Cells (Auto) < 1.0 /HPF (0-13.0) 01/22/22 17:30 Urine Bacteria (Auto) 1+ /HPF (Negative) 01/22/22 17:30 Urine Opiates Screen Negative 01/22/22 17:30 Urine Methadone Screen Negative 01/22/22 17:30 Ur Barbiturates Screen Negative 01/22/22 17:30 Ur Phencyclidine Scrn Negative 01/22/22 17:30 Ur Amphetamines Screen Negative 01/22/22 17:30 U Benzodiazepines Scrn Negative 01/22/22 17:30 Urine Cocaine Screen Negative 01/22/22 17:30 U Marijuana (THC) Screen Negative 01/22/22 17:30 Drugs of Abuse Note Disclamer 01/22/22 17:30 Microbiology: Microbiology 01/22/22 17:30 Urine,Clean Catch Urine Culture - Preliminary NO GROWTH AFTER 24 HOURS 01/22/22 16:05 Tracheal Aspirate Sputum Culture - Preliminary Beyer/IV: Voiding Method Indwelling Catheter Active Medications - Current Medications Current Medications: Generic Name Dose Route Start Last Admin Trade Name Freq PRN Reason Stop Dose Admin Acetaminophen 650 mg 01/22/22 13:00 Acetaminophen 325 Mg Tab PO Q4H PRN Pain MILD(1-3)/Fever >100.5/PITTMAN Enoxaparin Sodium 80 mg 01/23/22 10:00 01/23/22 09:26 Enoxaparin 80 Mg/0.8 Ml Inj SUB-Q 80 mg Q24HR ALEX Administration Protocol Famotidine 10 mg 01/22/22 12:00 01/23/22 09:30 Famotidine 20 Mg/2 Ml Inj IV 10 mg BID ALEX Administration Hydralazine HCl 10 mg 01/23/22 02:00 01/23/22 01:47 Hydralazine 20 Mg/1 Ml Inj IV 10 mg Q6HR PRN Administration systolic greather than 165 Hydrophilic Ointment 1 applic 01/22/22 12:00 01/22/22 12:05 Lip Therapy Vaseline TP 1 applic Q2HR PRN Administration Dry Lips Dopamine HCl/Dextrose 800 mg in 250 mls @ 3.21 mls/hr 01/22/22 11:45 01/22/22 13:30 Dopamine 800 Mg/D5w 250ml IV 01/25/22 17:37 4 mcg/kg/min TITR ONE 6.42 mls/hr Titration Protocol 2 MCG/KG/MIN NORepinephrine/NS 8 MG-250 ML 8 mg in 250 mls @ 3.75 mls/hr 01/22/22 12:00 03/09/22 13:43 Norepinephrine/Ns 8 Mg-250 Ml (Double Conc) IV 10 mcg/min TITRATE ALEX 18.75 mls/hr Administration Protocol 2 MCG/MIN Sodium Chloride 1,000 mls @ 125 mls/hr 01/22/22 12:30 01/23/22 13:43 Nacl 0.9% 1000 Ml IV 125 mls/hr DIRECT ALEX Administration Cefepime HCl 1 gm in 100 mls @ 200 mls/hr 01/24/22 09:00 Cefepime/Ns 1 Gm/100 Ml IV Q24H ALEX Metoclopramide HCl 5 mg 01/22/22 13:00 Metoclopramide 10 Mg/2 Ml Inj IV Q6H PRN Nausea And Vomiting Multi-Ingred Cream/Lotion/Oil/Oint 1 applic 01/22/22 14:00 Mineral Oil/Petrolatum, White Ophth Oint 3.5 Gm OU Q4HR PRN Dry Eye(s) Ondansetron HCl 4 mg 01/22/22 13:00 Ondansetron 4 Mg/2 Ml Inj IV Q3H PRN Nausea And Vomiting Senna/Docusate Sodium 1 tab 01/22/22 12:00 01/23/22 09:30 Sennosides/Docusate Sodium 8.6/50 Mg Tab FEEDTUBE 1 tab BID ALEX Administration Sodium Chloride 10 ml 01/22/22 22:00 01/23/22 09:30 Sodium Chloride 0.9% 10 Ml Flush Syringe IV 10 ml BID ALEX Administration Sodium Chloride 10 ml 01/22/22 13:00 Sodium Chloride 0.9% 10 Ml Flush Syringe IV PRN PRN LINE FLUSH <DANIA VENTURA - Last Filed: 01/23/22 19:20> Assessment and Plan Assessment and plan: I saw and evaluated the patient. Discussed with the nurse practitioner and agree with their findings and plan as documented in this note except: CT brain findings communicated to me by CATERING ASSOCIATE at approximately 1500. Upon reviewing CT brain, radiology did attempt to contact physician however number utilized was incorrect. Number called by radiology at approximately 1230 was not my direct number but the hospitalist instrument lens grinder apprentice office number. ICU instrument lens grinder apprentice and Patient RN stated they had not received a call regarding results. Upon my knowledge of the results, I immediately called teradata solution architect neurosurgery, Dr Correa. Their independent review of imaging revealed that patient had extensive SAH and intraventircular hemorrhage as well as herniation evident. This was inoperable and in conjunction with NM brain findings as well as neuro exam findings was highly suggestive of brain . I discussed the findings with the family who understood the results and stated they would like to withdraw care in the presence of family. Currently awaiting cold water caloric testing by neurology and final impression. Plan for withdrawal of care tomorrow once neurology finalizes assessment/gives final impression. Hospitalist Physical - Constitutional Vitals: Temp Pulse Resp BP Pulse Ox 96.3 F L 75 18 115/73 95 01/23/22 07:21 01/23/22 16:35 01/23/22 16:00 01/23/22 16:35 01/23/22 16:35 HEART Score - HEART Score Troponin: Troponin T 2.100 ng/mL (0.00-0.029) H* D 01/23/22 14:46 Results - Labs CBC & Chem 7: 01/23/22 03:57 01/23/22 14:46 Labs: Laboratory Last Values WBC 8.0 K/mm3 (4.5-11.0) 01/23/22 03:57 RBC 3.46 M/mm3 (3.65-5.03) L 01/23/22 03:57 Hgb 11.0 gm/dl (10.1-14.3) 01/23/22 03:57 Hct 33.2 % (30.3-42.9) 01/23/22 03:57 MCV 96 fl (79-97) 01/23/22 03:57 MCH 32 pg (28-32) 01/23/22 03:57 MCHC 33 % (30-34) 01/23/22 03:57 RDW 13.6 % (13.2-15.2) 01/23/22 03:57 Plt Count 175 K/mm3 (140-440) D 01/23/22 03:57 Lymph % (Auto) 11.4 % (13.4-35.0) L 01/23/22 03:57 Garfield % (Auto) 5.0 % (0.0-7.3) 01/23/22 03:57 Eos % (Auto) 0.5 % (0.0-4.3) 01/23/22 03:57 Baso % (Auto) 0.2 % (0.0-1.8) 01/23/22 03:57 Lymph # (Auto) 0.9 K/mm3 (1.2-5.4) L 01/23/22 03:57 Garfield # (Auto) 0.4 K/mm3 (0.0-0.8) 01/23/22 03:57 Eos # (Auto) 0.0 K/mm3 (0.0-0.4) 01/23/22 03:57 Baso # (Auto) 0.0 K/mm3 (0.0-0.1) 01/23/22 03:57 Seg Neutrophils % 82.9 % (40.0-70.0) H 01/23/22 03:57 Seg Neutrophils # 6.7 K/mm3 (1.8-7.7) 01/23/22 03:57 PT 14.6 Sec. (12.2-14.9) 01/22/22 10:47 INR 1.03 (0.87-1.13) 01/22/22 10:47 APTT 24.7 Sec. (24.2-36.6) 01/22/22 10:47 D-Dimer 5382.96 ng/mlDDU (0-234) H 01/22/22 10:47 ABG pH 7.575 pH Units (7.350-7.450) H 01/23/22 04:00 ABG pCO2 25.2 mm Hg 01/23/22 04:00 ABG pO2 124.7 mm Hg (80.0-90.0) H 01/23/22 04:00 ABG HCO3 22.9 mmol/L (20.0-26.0) 01/23/22 04:00 ABG O2 Saturation 98.7 % (95.0-99.0) 01/23/22 04:00 ABG O2 Content 14.2 (0.0-44) 01/23/22 04:00 ABG Base Excess 1.7 mmol/L (-2.0-3.0) 01/23/22 04:00 ABG Hemoglobin 10.2 gm/dl (12.0-16.0) L 01/23/22 04:00 ABG Carboxyhemoglobin 0.9 % (0.0-5.0) 01/23/22 04:00 ABG Methemoglobin 0.4 % (0.0-1.5) 01/23/22 04:00 Oxyhemoglobin 97.4 % (95.0-99.0) 01/23/22 04:00 FiO2 50 % 01/23/22 04:00 Sodium 154 mmol/L (137-145) H 01/23/22 14:46 Potassium 3.6 mmol/L (3.6-5.0) 01/23/22 14:46 Chloride 117.9 mmol/L (98-107) H 01/23/22 14:46 Carbon Dioxide 20 mmol/L (22-30) L 01/23/22 14:46 Anion Gap 20 mmol/L 01/23/22 14:46 BUN 59 mg/dL (7-17) H 01/23/22 14:46 Creatinine 5.0 mg/dL (0.6-1.2) H 01/23/22 14:46 Estimated GFR 11 ml/min 01/23/22 14:46 BUN/Creatinine Ratio 12 % 01/23/22 14:46 Glucose 181 mg/dL (65-100) H 01/23/22 14:46 POC Glucose 93 mg/dL (70-105) 01/23/22 15:43 Lactic Acid 1.60 mmol/L (0.7-2.0) 01/23/22 14:46 Calcium 9.1 mg/dL (8.4-10.2) 01/23/22 14:46 Magnesium 1.80 mg/dL (1.7-2.3) 01/23/22 14:46 Total Bilirubin 0.30 mg/dL (0.1-1.2) 01/23/22 03:57 AST 86 units/L (5-40) H 01/23/22 03:57 ALT 35 units/L (7-56) 01/23/22 03:57 Alkaline Phosphatase 56 units/L (35-129) 01/23/22 03:57 Troponin T 2.100 ng/mL (0.00-0.029) H* D 01/23/22 14:46 NT-Pro-B Natriuret Pep 996.2 pg/mL (0-900) H 01/22/22 09:53 Total Protein 5.7 g/dL (6.3-8.2) L 01/23/22 03:57 Albumin 2.7 g/dL (3.9-5) L 01/23/22 03:57 Albumin/Globulin Ratio 0.9 % 01/23/22 03:57 Triglycerides 69 mg/dL (2-149) 01/22/22 09:53 Cholesterol 199 mg/dL (50-199) 01/22/22 09:53 LDL Cholesterol Direct 127 mg/dL (50-130) 01/22/22 09:53 HDL Cholesterol 57 mg/dL (40-59) 01/22/22 09:53 Cholesterol/HDL Ratio 3.49 % 01/22/22 09:53 Lipase 74 units/L (13-60) H 01/22/22 09:53 Urine Color Colorless (Yellow) 01/22/22 17:30 Urine Turbidity Clear (Clear) 01/22/22 17:30 Urine pH 8.0 (5.0-7.0) H 01/22/22 17:30 Ur Specific [place] 1.005 (1.003-1.030) 01/22/22 17:30 Urine Protein 100 mg/dl mg/dL (Negative) 01/22/22 17:30 Urine Glucose (UA) Trace mg/dL (Negative) 01/22/22 17:30 Urine Ketones Negative mg/dL (Negative) 01/22/22 17:30 Urine Blood Trace (Negative) 01/22/22 17:30 Urine Nitrite Negative (Negative) 01/22/22 17:30 Ur Reducing Substances Not Reportable 01/22/22 17:30 Urine Bilirubin Negative (Negative) 01/22/22 17:30 Urine Ictotest Not Reportable 01/22/22 17:30 Urine Urobilinogen < 2.0 mg/dL (<2.0) 01/22/22 17:30 Ur Leukocyte Esterase Small (Negative) 01/22/22 17:30 Urine WBC (Auto) 11.0 /HPF (0.0-6.0) H 01/22/22 17:30 Urine RBC (Auto) 14.0 /HPF (0.0-6.0) 01/22/22 17:30 U Epithel Cells (Auto) < 1.0 /HPF (0-13.0) 03/08/22 17:30 Urine Bacteria (Auto) 1+ /HPF (Negative) 01/22/22 17:30 Urine Opiates Screen Negative 01/22/22 17:30 Urine Methadone Screen Negative 01/22/22 17:30 Ur Barbiturates Screen Negative 01/22/22 17:30 Ur Phencyclidine Scrn Negative 01/22/22 17:30 Ur Amphetamines Screen Negative 01/22/22 17:30 U Benzodiazepines Scrn Negative 01/22/22 17:30 Urine Cocaine Screen Negative 01/22/22 17:30 U Marijuana (THC) Screen Negative 01/22/22 17:30 Drugs of Abuse Note Disclamer 01/22/22 17:30 Microbiology: Microbiology 01/22/22 17:30 Urine,Clean Catch Urine Culture - Preliminary NO GROWTH AFTER 24 HOURS 01/22/22 16:05 Tracheal Aspirate Sputum Culture - Preliminary Beyer/IV: Voiding Method Indwelling Catheter Active Medications - Current Medications Current Medications: Generic Name Dose Route Start Last Admin Trade Name Freq PRN Reason Stop Dose Admin Acetaminophen 650 mg 01/22/22 13:00 Acetaminophen 325 Mg Tab PO Q4H PRN Pain MILD(1-3)/Fever >100.5/PITTMAN Famotidine 10 mg 01/22/22 12:00 01/23/22 09:30 Famotidine 20 Mg/2 Ml Inj IV 10 mg BID ALEX Administration Hydralazine HCl 10 mg 01/23/22 02:00 01/23/22 01:47 Hydralazine 20 Mg/1 Ml Inj IV 10 mg Q6HR PRN Administration systolic greather than 165 Hydrophilic Ointment 1 applic 01/22/22 12:00 01/22/22 12:05 Lip Therapy Vaseline TP 1 applic Q2HR PRN Administration Dry Lips Dopamine HCl/Dextrose 800 mg in 250 mls @ 3.21 mls/hr 01/22/22 11:45 01/22/22 13:30 Dopamine 800 Mg/D5w 250ml IV 01/25/22 17:37 4 mcg/kg/min TITR ONE 6.42 mls/hr Titration Protocol 2 MCG/KG/MIN NORepinephrine/NS 8 MG-250 ML 8 mg in 250 mls @ 3.75 mls/hr 01/22/22 12:00 01/23/22 14:10 Norepinephrine/Ns 8 Mg-250 Ml (Double Conc) IV 0 mcg/min TITRATE ALEX 0 mls/hr Titration Protocol 2 MCG/MIN Sodium Chloride 1,000 mls @ 125 mls/hr 01/22/22 12:30 01/23/22 13:43 Nacl 0.9% 1000 Ml IV 125 mls/hr DIRECT ALEX Administration Metoclopramide HCl 5 mg 01/22/22 13:00 Metoclopramide 10 Mg/2 Ml Inj IV Q6H PRN Nausea And Vomiting Multi-Ingred Cream/Lotion/Oil/Oint 1 applic 01/22/22 14:00 Mineral Oil/Petrolatum, White Ophth Oint 3.5 Gm OU Q4HR PRN Dry Eye(s) Ondansetron HCl 4 mg 01/22/22 13:00 Ondansetron 4 Mg/2 Ml Inj IV Q3H PRN Nausea And Vomiting Senna/Docusate Sodium 1 tab 01/22/22 12:00 01/23/22 09:30 Sennosides/Docusate Sodium 8.6/50 Mg Tab FEEDTUBE 1 tab BID ALEX Administration Sodium Chloride 10 ml 01/22/22 22:00 01/23/22 09:30 Sodium Chloride 0.9% 10 Ml Flush Syringe IV 10 ml BID ALEX Administration Sodium Chloride 10 ml 01/22/22 13:00 Sodium Chloride 0.9% 10 Ml Flush Syringe IV PRN PRN LINE FLUSH
[2022-01-23 16:11] LABS: Calcium 9.1 mg/dL (8.4-10.2)
[2022-01-23] MEDS ORDERED: dilTIAZem 25 MG/5 ML INJ IV ONE (23:50)
[2022-01-24 04:44] LABS: ABG Base Excess -2.4 mmol/L (-2.0-3.0); ABG HCO3 20.8 mmol/L (20.0-26.0); ABG Methemoglobin 0.5 % (0.0-1.5); ABG Oxygen Saturation 99.1 % (95.0-99.0); ABG PCO2 30.3 mm Hg; ABG PH 7.454 pH Units (7.350-7.450)
[2022-01-24] MEDS: SODIUM CHLORIDE 0.9% 1000 ML 1,000 ML IV SCH (05:38)
--- NOTE | 2022-01-24 05:41 | XRay Report ---
CHEST 1 VIEW INDICATION / CLINICAL INFORMATION: follow up respiratory failure. COMPARISON: Chest x-ray 01/23/2022 FINDINGS: SUPPORT DEVICES: Endotracheal tube and right IJ central venous catheter appear stable. HEART / MEDIASTINUM: No significant abnormality. LUNGS / PLEURA: The lungs are clear. No pneumothorax. ADDITIONAL FINDINGS: No significant additional findings. IMPRESSION: 1. No active cardiopulmonary disease. Signer Name: Elie Salas II, MD Signed: 01/24/2022 5:37 AM Workstation Name: [id number]
--- NOTE | 2022-01-24 08:26 | XRay Report ---
ABDOMEN 1 VIEW(S) INDICATION / CLINICAL INFORMATION: OG tube placement. COMPARISON: None available. FINDINGS: TUBES / LINES: OG tube appears in adequate position terminating in the mid stomach BOWEL GAS PATTERN: No significant abnormality. FREE AIR / EXTRALUMINAL GAS: None seen. ADDITIONAL FINDINGS: No significant additional findings. IMPRESSION: No significant abnormality. OG tube as described. Signer Name: Srikanth Bay Jr, MD Signed: 01/24/2022 8:21 AM Workstation Name: [id number]
[2022-01-24] MEDS ORDERED: CEFEPIME/NS 1 GM/100 ML 1 GM/100 ML BAG IV SCH (09:00)
--- NOTE | 2022-01-24 10:09 | Death Summary ---
Summary - Providers Date of service: 01/24/22 Consults: 01/22/22 11:47 Consult to Physician [CONS] Stat Comment: Consulting Provider: RAFY RAI Physician Instructions: Reason For Exam: CCU admission 01/23/22 06:17 Consult to Physician [CONS] Routine Comment: dr. mejia saw patient/ jovany Consulting Provider: ILENE MEJIA Physician Instructions: Reason For Exam: s/p cardiac arrest 01/23/22 06:20 Consult to Physician [CONS] Routine Comment: spoke with Dr. Cabrera/ jovany Consulting Provider: BARON CABRERA Physician Instructions: Reason For Exam: [place] 01/23/22 09:46 Consult to Physician [CONS] Routine Comment: Consulting Provider: LEONIDAS TALAVERA Physician Instructions: Reason For Exam: s/p cardiac arrest x2 Attending: DANIA MONTANEZ MD - summary Date of admission: 01/22/22 12:25 Date of : 01/24/22 Procedures/treatments rendered: This is a 56-year-old female with HTN who was found unresponsive by her family member on 01/22 and was found in asystole upon EMS arrival and status was initiated and she was given Narcan. Last known well time at 5 AM on 01/22. ACLS continued the emergency department and patient was shocked and ROSC was achieved. Patient was also intubated. Work-up in the emergency department revealed elevated D-dimer, proBNP and troponins as well as acute kidney injury. Patient was hypotensive in the emergency department and was started on dopamine drip as bridge until CVL was inserted and Levophed was started. Patient was admitted to the hospitalist service with consults to [facility] and nephrology. Cardiology and neurology consulted. Patient had an nuclear brain flow study and CT head. Nephrology recommended to continue normal saline. Patient became hypotensive yesterday evening and was started on Levophed for a brief moment. [facility] She also had an echocardiogram. XR obtained of right arm due to swelling/bruising upon family request which showed no acute fracture. Elevated D-dimer and bilateral lower extremity ultrasound obtained which showed no DVT. CT head revealed ICH and SAH and Dr. Correa (neurosurgeon) was contacted by Dr. Montanez (attending) who recommended no further intervention given NM brain flow study showed absent blood flow. Findings of these studies were conveyed to the family with Mrs. Vallejo (CM) present to provide emotional support to the family. This morning Dr. Talavera (neurologist) performed bedside exam to confirm brain and found absent corneal reflex, EOM,GAG or cough reflex, pupillary reflex, caloric test, NO spontaneous breathing and apnea test deferred as he determined that the patient is unstable. Brain pronounced by Dr. Montanez at 0945. Family at bedside to say their good byes and [facility] at bedside for evaluation. Dr. Montanez spoke to significant other about testign and the determination of brain . Extubation to follow. Condolences offered to family by physician and transplant case manager. Anoxic brain injury Intraventricular and Subarachnoid hemorrhage s/p cardiopulmonary arrest NSTEMI h/o HTN Acute hypoxic respiratory failure Protein calorie malnutrition Acute kidney injury likely secondary to vasomotor nephropathy Hypernatremia Hyperchloremia Metabolic acidosis Hyperglycemia Elevated D-dimer CCT 90 mins including extensive family meeting with Dr. Montanez Pertinent studies: -01/23 CT head shows extensive intraventricular and subarachnoid hemorrhage with no notable mass-effect or findings concerning for diffuse cerebral edema. Opacification of the small air-fluid levels around the posterior sphenoid sinuses -Radiology attempted to convey the results of the CT scan several times however was calling the wrong number. -01/23 nuclear med brain flow study showed absent cerebral flow -Right upper extremity XR without acute fracture -Right upper extremity dopplar US with no DVT -BLE dopplar US with no DVT
--- NOTE | 2022-01-24 11:04 | Progress Note ---
Assessment and Plan Assessment and Plan 56-year-old female with history of hypertension, GERD and hyperlipidemia was last well-known at 5 AM. She was found unresponsive by family member. EMS was called. CPR was not done initially. CPR was resumed and ACLS protocol was followed. Patient was given 3 doses of epinephrine and 1 dose of bicarb and naloxone. Return of spontaneous circulation was achieved. Patient was intubated for protection of airway. In the emergency room patient was hypotensive. Patient was initiated on Levophed. No fever or chills or any signs or symptoms of infection before. Patient was in normal health. Was doing well. ED course--patient intubated and started on pressors. Patient being admitted to ICU. Labs revealed hypercalcemia and acute kidney injury and elevated troponin. - Patient Problems # Sudden cardiac arrest - sudden cardiopulmonary arrest -down time is unknown -she is off sedation -CT brain is consistent with sever SAH -exam is remarkable for absent brain stem reflexes{ Abel,EOM,GAG,PUPILS,Carlric test,NO spontaneous breathing} apnea test is defred pt. is unstable. -she is on pressor agent - NM brain flow study showed no blood flow -findings d/w her nures and her daughter. - over all prognosis is poor / findings are consistent with brain # SAH -massive noted On CT brain -NS consulted -she is brain . # [place] (acute kidney injury) -Possible ATN secondary to hypotension -IV fluids for now # NSTEMI (non-ST elevated myocardial infarction) -Possible NSTEMI -Patient initiated on Lovenox -Patient is on pressors now -Poor prognosis # Elevated d-dimer -CT angiogram could not be done -PE cannot be ruled out -Patient on high dose Lovenox 85 mg every 12 # Sepsis -Patient started on cefepime and vancomycin empirically May be discontinued in 24 to 48 hours # Hypercalcemia Current Visit: Yes Status: Acute Plan to address problem: IV fluids for now and recheck calcium level # Hypertension -Hold antihypertensives for now # DVT prophylaxis -Patient on anticoagulation and GI prophylaxis #Advance care planning -Patient is full code, discussed with family at length-her daughter in the room -Advance education conducted, care plan discussed, diagnosis discussed, p rognosis discussed. Patient is full code. Patient's family acknowledges Critical care statement The high probability OF a clinically significant sudden or life-threatening deterioration of the cardiorespiratory system and endocrine system required my full and direct attention, intervention and postoperative management. The aggregate critical care time was 30 minutes. The time is in addition to time spent performing reported procedures but includes the followin: Data review and interpretation 2: Patient assessment and monitoring of vital signs 3: Documentation 4:: Medication orders and management Advance Directives: Yes (Full code) VTE prophylaxis?: Chemical Plan of care discussed with patient/family: Yes Case D/W family at length findings on exam as well as CT brain and NM brain flow explained all their questions answered pt. is brain Subjective Date of service: 01/24/22 Interval history: status is unchanged she is warmed up to 97 deg. no changes as far as cranial nerves status case D/W NS by dr. pierre caloric test is done today showed no movment findings are consistent with brain findings explained to family in details today and their questions answered Objective - Vital Sign Vital Signs - 12hr 01/23/22 01/23/22 01/24/22 23:00 23:30 00:00 Temperature 97.4 F L Pulse Rate 103 H 85 76 Respiratory 14 14 18 Rate Blood Pressure 174/109 123/75 108/62 O2 Sat by Pulse 96 96 98 Oximetry 01/24/22 01/24/22 01/24/22 00:03 00:06 00:30 Temperature Pulse Rate 80 74 69 Respiratory 14 14 Rate Blood Pressure 104/65 108/62 92/53 O2 Sat by Pulse 96 96 97 Oximetry 01/24/22 01/24/22 01/24/22 01:00 01:30 02:00 Temperature Pulse Rate 70 71 75 Respiratory 14 14 14 Rate Blood Pressure 102/57 104/65 110/72 O2 Sat by Pulse 97 97 97 Oximetry 01/24/22 01/24/22 01/24/22 02:30 03:00 03:30 Temperature Pulse Rate 77 78 75 Respiratory 14 14 14 Rate Blood Pressure 112/75 109/73 111/72 O2 Sat by Pulse 97 97 97 Oximetry 01/24/22 01/24/22 01/24/22 03:42 04:00 04:30 Temperature 97.5 F L Pulse Rate 92 H 68 Respiratory 14 14 Rate Blood Pressure 103/50 109/66 O2 Sat by Pulse 99 97 Oximetry 01/24/22 01/24/22 01/24/22 05:00 05:30 06:00 Temperature Pulse Rate 68 70 73 Respiratory 14 14 14 Rate Blood Pressure 108/64 108/69 110/69 O2 Sat by Pulse 98 98 95 Oximetry 01/24/22 01/24/22 01/24/22 06:30 07:00 07:13 Temperature 98.2 F Pulse Rate 75 78 Respiratory 14 14 Rate Blood Pressure 110/69 110/68 O2 Sat by Pulse 95 95 Oximetry 01/24/22 01/24/22 01/24/22 07:30 08:00 08:20 Temperature Pulse Rate 79 84 82 Respiratory 14 17 Rate Blood Pressure 110/65 125/81 121/72 O2 Sat by Pulse 95 95 96 Oximetry 01/24/22 01/24/22 01/24/22 08:30 09:00 09:30 Temperature Pulse Rate 80 79 78 Respiratory 14 14 14 Rate Blood Pressure 108/66 102/60 102/61 O2 Sat by Pulse 98 97 100 Oximetry 01/24/22 01/24/22 10:00 10:30 Temperature Pulse Rate 77 77 Respiratory 14 14 Rate Blood Pressure 107/63 107/63 O2 Sat by Pulse 100 98 Oximetry - General Apperance Constitutional: comfortable - EENT EENT: mucous membranes moist - Respiratory Respiratory: lungs clear, rhonchi - Cardiovascular Cardiovascular: regular rate, normal S1, normal S2 Extremities: no peripheral edema bilat, no clubbing, cyanosis - Gastrointestinal Gastrointestinal: normoactive bowel sounds - Integumentary Integumentary: normal - Neurologic Cranial nerve examination: other (absent corneal, pupils are 4 mm none reactive,No EOM is noted, no gag , no spontaneous beathing is noted, caloric test is done today showed no response , apnea test is defered due to unsatble BP) Detailed motor examination: other (no movment to stimuli is noted) - Laboratory Findings CBC and BMP: 01/23/22 03:57 01/23/22 14:46 Abnormal Lab Findings: Abnormal Labs 01/22/22 01/22/22 01/22/22 09:53 09:53 10:47 RBC 3.50 L MCV 101 H Plt Count 80 L Lymph % (Auto) 50.5 H Lymph # (Auto) Seg Neutrophils % D-Dimer 5382.96 H ABG pH ABG pO2 ABG O2 Saturation ABG Base Excess ABG Hemoglobin Sodium 149 H Chloride 107.3 H Carbon Dioxide BUN 45 H Creatinine 3.5 H Glucose 271 H Calcium > 13.0 H* AST 44 H Troponin T 0.038 H NT-Pro-B Natriuret Pep 996.2 H Total Protein 5.8 L Albumin 3.0 L Lipase 74 H Urine pH Urine WBC (Auto) 01/22/22 01/22/22 01/23/22 11:10 17:30 03:57 RBC 3.46 L MCV Plt Count Lymph % (Auto) 11.4 L Lymph # (Auto) 0.9 L Seg Neutrophils % 82.9 H D-Dimer ABG pH ABG pO2 274.8 H ABG O2 Saturation 99.5 H ABG Base Excess ABG Hemoglobin Sodium Chloride Carbon Dioxide BUN Creatinine Glucose Calcium AST Troponin T NT-Pro-B Natriuret Pep Total Protein Albumin Lipase Urine pH 8.0 H Urine WBC (Auto) 11.0 H 01/23/22 01/23/22 01/23/22 03:57 03:57 04:00 RBC MCV Plt Count Lymph % (Auto) Lymph # (Auto) Seg Neutrophils % D-Dimer ABG pH 7.575 H ABG pO2 124.7 H ABG O2 Saturation ABG Base Excess ABG Hemoglobin 10.2 L Sodium 147 H Chloride 111.2 H Carbon Dioxide BUN 56 H Creatinine 4.7 H Glucose Calcium AST 86 H Troponin T 3.000 H* D NT-Pro-B Natriuret Pep Total Protein 5.7 L Albumin 2.7 L Lipase Urine pH Urine WBC (Auto) 01/23/22 01/23/22 01/24/22 14:46 14:46 03:53 RBC MCV Plt Count Lymph % (Auto) Lymph # (Auto) Seg Neutrophils % D-Dimer ABG pH 7.454 H ABG pO2 169.0 H ABG O2 Saturation 99.1 H ABG Base Excess -2.4 L ABG Hemoglobin 10.4 L Sodium 154 H Chloride 117.9 H Carbon Dioxide 20 L BUN 59 H Creatinine 5.0 H Glucose 181 H Calcium AST Troponin T 2.100 H* D NT-Pro-B Natriuret Pep Total Protein Albumin Lipase Urine pH Urine WBC (Auto)
--- NOTE | 2022-01-24 11:09 | Death Note ---
Note Date of : 01/24/22 Time of : :45 Time Pronounced: :45
[2022-01-24 15:17] VITALS: BP 78/48
== END 2022-01-24 16:00 | DRG 871 ==
LOC: ED 09:34 → CC1 12:25
PROVIDERS: ADMIT Internal Medicine; ATTEND Internal Medicine
PROC: 05HM33Z Insertion of Infusion Device into Right Internal Jugular Vein, Percutaneous Approach (ICD-10-PCS; principal; 2022-01-22)
PROC: B543ZZA Ultrasonography of Right Jugular Veins, Guidance (ICD-10-PCS; 2022-01-22)
PROC: 5A1945Z Respiratory Ventilation, 24-96 Consecutive Hours (ICD-10-PCS; 2022-01-22)
PROC: 0BH17EZ Insertion of Endotracheal Airway into Trachea, Via Natural or Artificial Opening (ICD-10-PCS; 2022-01-22)
PROC: 4A033R1 Measurement of Arterial Saturation, Peripheral, Percutaneous Approach (ICD-10-PCS; 2022-01-23)
DX: A41.9 Sepsis, unspecified organism (principal); J96.01 Acute respiratory failure with hypoxia; I21.4 Non-ST elevation (NSTEMI) myocardial infarction; I60.9 Nontraumatic subarachnoid hemorrhage, unspecified; N17.0 Acute kidney failure with tubular necrosis; G93.40 Encephalopathy, unspecified; E46 Unspecified protein-calorie malnutrition; E87.0 Hyperosmolality and hypernatremia; G93.1 Anoxic brain damage, not elsewhere classified; E87.2 Acidosis; I46.9 Cardiac arrest, cause unspecified; R57.0 Cardiogenic shock; K21.9 Gastro-esophageal reflux disease without esophagitis; I10 Essential (primary) hypertension; E78.5 Hyperlipidemia, unspecified; Z68.28 Body mass index [BMI] 28.0-28.9, adult; E87.5 Hyperkalemia; Z20.822 Contact with and (suspected) exposure to COVID-19; Y92.89 Other specified places as the place of occurrence of the external cause; R73.9 Hyperglycemia, unspecified
CPT/HCPCS: 36415; 36600; 70450; 71045; 74018; 78601; 80048; 80053; 80061; 80307; 81001; 82140; 82803; 82962; 83690; 83735; 83880; 84484; 85025; 85379; 85610; 85730; 87070; 87086; 87205; 93005; 93306; 93970; 94002; 94003; G0378; J2354; J3490; Q0162; A9512; C8929; J0171; J0360; J0692; J1265; J1644; J1650; J7030; J7050